=== PATIENT | female | born 1950 | race African-American/Black ===

== ENCOUNTER 2016-06-15 09:55 | Outpatient (RCR) | payer MEDICARE ==
[~2016-06-15 09:55] MED LIST: ALTA10CA3 PO; AMLO10TA PO; ASPI81TA85 PO; ATEN50TA2 PO; GLYB5TA PO; HYDR12.55 PO; LIPITOR PO; LISI-538 PO; TYLE325T5 PO
== END 2016-06-21 ==
LOC: M ST 09:55
PROVIDERS: ATTEND Nurse Practitioner Family
DX: Z51.89 Encounter for other specified aftercare (principal); I67.89 Other cerebrovascular disease; R47.01 Aphasia

== ENCOUNTER 2016-07-04 10:00 | Outpatient (RCR) | payer MEDICARE | END 2016-07-19 | LOC: M ST 10:00 | PROVIDERS: ATTEND Nurse Practitioner Family | DX: Z51.89 Encounter for other specified aftercare (principal); I67.89 Other cerebrovascular disease; R53.1 Weakness; R47.01 Aphasia | CPT/HCPCS: 92507; G9162; G9163 ==

== ENCOUNTER 2016-07-22 10:44 | Outpatient (RCR) | payer MEDICARE, MEDICAID | END 2016-08-19 | LOC: M ST 10:44 | PROVIDERS: ATTEND Nurse Practitioner Family | DX: I67.89 Other cerebrovascular disease (principal); R47.01 Aphasia | CPT/HCPCS: 92507; G9162; G9163; G9164 ==

== ENCOUNTER → 2016-07-22 | Outpatient (CLI) | payer MEDICARE ==
[2016-07-22 13:18] LABS: ANION GAP 10 MEQ/L (8-16); BLOOD UREA NITROGEN 12 MG/DL (7-18); CALCIUM LEVEL 12.3 MG/DL (8.8-10.2); CARBON DIOXIDE LEVEL 28 MEQ/L (21-32); CHLORIDE LEVEL 103 MEQ/L (98-107); CREATININE FOR GFR 0.88 MG/DL (0.55-1.02); GLOMERULAR FILTRATION RATE > 60.0 (>45); GLUCOSE, FASTING 89 MG/DL (80-110); POTASSIUM SERUM 3.3 MEQ/L (3.5-5.1); SODIUM LEVEL 141 MEQ/L (136-145)
== END ==
LOC: M LAB 11:57
PROVIDERS: ATTEND Nurse Practitioner Family
DX: E55.9 Vitamin D deficiency, unspecified (principal); I10 Essential (primary) hypertension

== ENCOUNTER → 2016-07-25 | Outpatient (CLI) | payer MEDICARE ==
[2016-07-25 16:11] LABS: ANION GAP 7 MEQ/L (8-16); BLOOD UREA NITROGEN 13 MG/DL (7-18); CALCIUM LEVEL 12.5 MG/DL (8.8-10.2); CARBON DIOXIDE LEVEL 31 MEQ/L (21-32); CHLORIDE LEVEL 101 MEQ/L (98-107); CREATININE FOR GFR 0.95 MG/DL (0.55-1.02); GLOMERULAR FILTRATION RATE > 60.0 (>45); GLUCOSE, FASTING 110 MG/DL (80-110); POTASSIUM SERUM 3.3 MEQ/L (3.5-5.1); SODIUM LEVEL 139 MEQ/L (136-145)
== END ==
LOC: M LAB 14:51
PROVIDERS: ATTEND Internal Medicine Cardiovascular Disease
DX: I10 Essential (primary) hypertension (principal)

== ENCOUNTER → 2016-09-07 | Outpatient (REF) | payer MEDICARE, MEDICAID ==
[~2016-09-07] MED LIST changes: +ATEN25TA PO; +CHLO25TA PO; +POTA10CA PO; +VITA50003 PO
[2016-09-07 18:42] LABS: ANION GAP 8 MEQ/L (8-16); BLOOD UREA NITROGEN 23 MG/DL (7-18); CALCIUM LEVEL 13.5 MG/DL (8.8-10.2); CARBON DIOXIDE LEVEL 28 MEQ/L (21-32); CHLORIDE LEVEL 102 MEQ/L (98-107); CREATININE FOR GFR 1.21 MG/DL (0.55-1.02); GLOMERULAR FILTRATION RATE 57.4 (>45); GLUCOSE, FASTING 95 MG/DL (80-110); POTASSIUM SERUM 3.5 MEQ/L (3.5-5.1); SODIUM LEVEL 138 MEQ/L (136-145)
[2016-09-08 11:23] LABS: ALBUMIN % 63.3 % (55.8-66.1); GAMMA GLOBULIN % 12.7 % (11.1-18.8)
== END ==
LOC: M LAB REF 16:48
PROVIDERS: ATTEND Nurse Practitioner Family
DX: E83.52 Hypercalcemia (principal)

== ENCOUNTER 2016-09-08 15:59 | Inpatient (IN) | payer MEDICARE, MEDICAID ==
[~2016-09-08] VITALS: Ht 162.6 cm; Wt 74.0 kg
[~2016-09-08 15:59] MED LIST changes: -ATEN25TA PO; -CHLO25TA PO; -POTA10CA PO; -VITA50003 PO
[2016-09-08] MEDS ORDERED: VITA50003 PO (16:20)
[2016-09-08] MEDS ORDERED: ATEN50TA2 PO (16:20)
[2016-09-08] MEDS ORDERED: POTA10CA PO ×2 (16:20→20:32)
[2016-09-08] MEDS ORDERED: CHLO25TA PO ×2 (16:20→20:32)
--- NOTE | 2016-09-08 18:10 | REP ---
CHEST, TWO VIEWS: HISTORY: Hypercalcemia. A diffuse increase in interstitial markings is present in the lungs. The heart is normal in size. The pulmonary vasculature is normal in appearance. The bony structure is intact. IMPRESSION: There is a diffuse increase in interstitial markings in the lungs. It can not be determined if this is acute or chronic as no films are available for comparison. This may represent chronic interstitial fibrosis or an acute process such as interstitial pneumonia or edema. Signed by Agus Washington MD 09/09/2016 08:35 A
[2016-09-08 18:14] LABS: IONIZED CALCIUM 6.5 MG/DL (4.5-5.3)
[2016-09-08 18:22] LABS: BASO % 0.4 % (0.0-1.0); EOS # 0.2 K/mm3 (0.0-0.50); LARGE UNSTAINED CELL # 0.3 K/mm3 (0.0-0.4); LARGE UNSTAINED CELL % 3.3 % (0.0-4.0); LYMPH # 1.1 K/mm3 (1.5-4.5); LYMPH % 13.2 % (24.0-44.0); MEAN CORPUSCULAR HEMOGLOBIN 29.2 pg (27.0-33.0); MEAN CORPUSCULAR HGB CONC 34.1 g/dl (32.0-36.5); MEAN CORPUSCULAR VOLUME 85.5 fl (80.0-96.0); MONO # 0.5 K/mm3 (0.0-0.8); MONO % 5.6 % (0.0-5.0); NEUTROPHILS # 6.4 K/mm3 (1.8-7.7); NEUTROPHILS % 75.6 % (36.0-66.0); PLATELET COUNT, AUTOMATED 222 k/mm3 (150-450); RED CELL DISTRIBUTION WIDTH 14.4 % (11.5-14.5); WHITE BLOOD COUNT 8.5 K/mm3 (4.0-10.0)
[2016-09-08 18:30] LABS: INR 0.94
[2016-09-08 18:38] LABS: CALCIUM LEVEL 13.2 MG/DL (8.8-10.2); MAGNESIUM LEVEL 1.8 MG/DL (1.8-2.4); PHOSPHORUS LEVEL 2.2 MG/DL (2.5-4.9)
[2016-09-08 18:43] LABS: ALBUMIN 3.3 GM/DL (3.2-5.2); ALBUMIN/GLOBULIN RATIO 0.58 (1.00-1.93); ALKALINE PHOSPHATASE 68 U/L (45-117); ALT/SGPT 18 U/L (12-78); AMYLASE 121 U/L (25-115); ANION GAP 7 MEQ/L (8-16); AST/SGOT 12 U/L (15-37); BILIRUBIN,DIRECT 0.2 MG/DL (0.0-0.2); BILIRUBIN,TOTAL 0.8 MG/DL (0.2-1.0); BLOOD UREA NITROGEN 17 MG/DL (7-18); CALCIUM LEVEL 12.7 MG/DL (8.8-10.2); CARBON DIOXIDE LEVEL 28 MEQ/L (21-32); CHLORIDE LEVEL 103 MEQ/L (98-107); CREATININE FOR GFR 1.15 MG/DL (0.55-1.02); GLOMERULAR FILTRATION RATE > 60.0 (>45); GLUCOSE, FASTING 82 MG/DL (80-110); POTASSIUM SERUM 3.6 MEQ/L (3.5-5.1); SODIUM LEVEL 138 MEQ/L (136-145)
[2016-09-08 19:22] LABS: FREE T4 1.28 NG/DL (0.76-1.46)
[2016-09-08] MEDS ORDERED: ONDANSETRON 4MG/2ML VIAL (J2405) IV PRN (19:45)
[2016-09-08] MEDS ORDERED: ACETAMINOPHEN TAB 650MG DOSE (2X325MG) PO PRN (19:45)
--- NOTE | 2016-09-08 20:04 | REP ---
CT study of the chest without contrast: History: Weight loss. Comparison is made with today's chest x-ray showing diffuse interstitial lung disease. Elevated serum calcium. CT findings: There is an extensive pattern of reticulonodular opacities in the central lobular and ally bronchovascular tree in bud type distribution, upper lobe predominant and bilateral. There are also nodular changes in the lower lobes as well, but less numerous. There is some ally bronchovascular opacification with air bronchograms in the lower lobes and to a lesser extent in the upper lobes. There is mediastinal lymphadenopathy and hilar fullness bilaterally. Pretracheal and aorticopulmonary window adenopathy is seen. Subcarinal nodes are prominent. The anterior mediastinum appears spared. There is an oval shaped 2.1 cm nodule in the medial aspect of the right breast soft tissues, which appears smoothly marginated. This may be a fibroadenoma. No bony abnormality is appreciated. Impression: Diffuse reticulonodular interstitial lung disease associated with bilateral hilar and mediastinal adenopathy. The possibilities include granulomatous disease such as sarcoidosis and other granulomatous diseases. Differential is broad and may include lymphangitic spread of malignancy. Pulmonary medicine evaluation is warranted. Also noted is an oval-shaped right medial breast mass, which may be a fibroadenoma. Focused right breast ultrasound is recommended for further evaluation and consideration of ultrasound guided needle biopsy. Signed by Huy Moncada MD 09/09/2016 07:55 A
--- NOTE | 2016-09-08 20:04 | HPEPDOC ---
General Date of Admission 09/08/16 Other Providers PCP: Charissa Delatorre Attending Physician: ASTON VELÁZQUEZ MD Chief Complaint The patient is a 66-year-old female admitted with a reason for visit of Abnormal Lab Results. Source: Patient Exam Limitations: No limitations History of Present Illness 66-year-old female with past medical history of hypertension, diet-controlled diabetes mellitus, and CVA with no residual deficits presented to the ER after she was sent in by her primary care provider for hypercalcemia noticed on lab work and complaints of persistent lethargy and fatigue over the last 3 months. The patient states that during this time she has felt increasingly tired and notes that she has had a 10 pound unintentional weight loss over the last 1 month. She denies any acute complaints of fevers, chills, shortness of breath, chest pain, palpitations, abdominal pain, or any nausea/vomiting/diarrhea. She states that she has not gotten any of her cancer screening done other than a mammogram in 2014 which was normal. In the ER, the patient was noted to have a serum calcium level 13.2 and ionized calcium level of 6.5. In addition the patient also had an acute kidney injury. The patient will be admitted under the service of Dr. Velázquez, for further evaluation and management of hypercalcemia. Home Medications Scheduled Atenolol (Atenolol) 25 Mg Tab 25 MG PO QHS (Reported) Chlorthalidone (Chlorthalidone) 25 Mg Tab 25 MG PO DAILY (Reported) Potassium Chloride (Klor-Con M10) 10 Meq Tabcr 20 MEQ PO DAILY (Reported) Allergies Coded Allergies: Amlodipine (Unverified Allergy, Unknown, CAUSES GOUT, 09/08/16) Iodine (Verified Allergy, Unknown, 10/26/13) Warfarin (Verified Allergy, Unknown, 10/26/13) Past Medical History Medical History As noted in HPI. Surgical History Had an implantable loop recorder placed in 2013. Family History Alcohol had thyroid cancer, aunt had diabetes mellitus Social History * Smoker: Denies Alcohol: Denies Drugs: denies Review of Symptoms Other systems 10 point review of systems negative unless otherwise specified in HPI. Physical Examination General Exam: Positive: Alert, Cooperative, No Acute Distress ENT Exam: Positive: Atraumatic, Mucous membr. moist/pink Neck Exam: Negative: JVD Chest Exam: Positive: Clear to auscultation, Normal air movement Heart Exam: Positive: Normal S1, Normal S2, Rate Normal Telemetry: Positive: Sinus Abdomen Exam: Positive: Soft, Negative: Tenderness Extremity Exam: Negative: Swelling, Tenderness Psych Exam: Positive: Oriented x 3 Vital Signs Vital Signs Date Time Temp Pulse Resp B/P Pulse Ox O2 Delivery O2 Flow Rate FiO2 09/08/16 19:14 18 09/08/16 15:59 96.9 89 97 Room Air Laboratory Data Labs 24H Laboratory Tests 2 09/08/16 17:57: Activated Partial Thromboplast Time 27.1, Aspartate Amino Transf (AST/SGOT) 12L , Alanine Aminotransferase (ALT/SGPT) 18, Alkaline Phosphatase 68, Total Bilirubin 0.8, Direct Bilirubin 0.2, Albumin 3.3, Albumin/Globulin Ratio 0.58L, Amylase Level 121H, Anion Gap 7L, B-Type Natriuretic Peptide 26.0, White Blood Count 8.5, Red Blood Count 4.80, Hemoglobin 14.0, Hematocrit 41.0, Mean Corpuscular Volume 85.5, Mean Corpuscular Hemoglobin 29.2, Mean Corpuscular Hemoglobin Concent 34.1, Red Cell Distribution Width 14.4, Platelet Count 222, Neutrophils (%) (Auto) 75.6H, Lymphocytes (%) (Auto) 13.2L, Monocytes (%) (Auto ) 5.6H, Eosinophils (%) (Auto) 2.0, Basophils (%) (Auto) 0.4, Neutrophils # ( Auto) 6.4, Lymphocytes # (Auto) 1.1L, Monocytes # (Auto) 0.5, Eosinophils # ( Auto) 0.2, Basophils # (Auto) 0.0, Calcium Level 13.2H, Creatine Kinase MB 1.0, Creatine Kinase MB Relative Index 1.81, Free Thyroxine 1.28, Glomerular Filtration Rate > 60.0, Lactic Acid Level 1.1, Large Unclassified Cells # 0.3, Large Unclassified Cells % 3.3, Lipase 124, Magnesium Level 1.8, Parathyroid Hormone (Intact) 17.1, Phosphorus Level 2.2L, Prothromb Time International Ratio 0.94, Prothrombin Time 12.7, Thyroid Stimulating Hormone (TSH) 2.860, Total Creatine Kinase 55, Total Protein 9.0H, Troponin I < 0.02, Whole Blood Ionized Calcium 6.5*H 09/08/16 18:20: Urine Amorphous Sediment SMALLH, Urine Appearance CLEAR, Urine Color YELLOW, Urine pH 6.0, Urine Specific [place] 1.008, Urine Protein NEGATIVE, Urine Glucose (UA) NEGATIVE, Urine Ketones NEGATIVE, Urine Urobilinogen 0.2, Urine Bilirubin NEGATIVE, Urine Leukocyte Esterase 2+H, Urine Bacteria (Auto) 1+H, Urine Blood NEGATIVE, Urine Calcium Carbonate Cryst(Auto) , Urine Calcium Oxalate Cryst (Auto) , Urine Calcium Phosphate Tasha (Auto) , Urine Cellular Casts , Urine Cystine Crystals , Urine Granular Casts (Auto) , Urine Hyaline Casts (Auto) 1, Urine Leucine Crystals , Urine Mucus (Auto) SMALL, Urine Nitrite NEGATIVE, Urine Oval Fat Bodies (Auto) , Urine RBC (Auto) 5H, Urine Renal Epithelial Cells , Urine Sperm (Auto) , Urine Squamous Epithelial Cells 3 , Urine Transitional Epithelial Cells , Urine Trichomonas (Auto) , Urine Triple Phosphate Cryst (Auto) , Urine Tyrosine Crystals , Urine Uric Acid Crystals ( Auto) , Urine WBC (Auto) 10H, Urine Waxy Casts (Auto) , Urine Yeast-Like Cells ( Auto) CBC/BMP Laboratory Tests 09/08/16 17:57 Red Blood Count 4.80, Mean Corpuscular Volume 85.5, Mean Corpuscular Hemoglobin 29.2, Mean Corpuscular Hemoglobin Concent 34.1, Red Cell Distribution Width 14.4 , Neutrophils (%) (Auto) 75.6 H, Lymphocytes (%) (Auto) 13.2 L, Monocytes (%) ( Auto) 5.6 H, Eosinophils (%) (Auto) 2.0, Basophils (%) (Auto) 0.4, Neutrophils # (Auto) 6.4, Lymphocytes # (Auto) 1.1 L, Monocytes # (Auto) 0.5, Eosinophils # (Auto) 0.2, Basophils # (Auto) 0.0 Plan / VTE VTE Prophylaxis Ordered?: Yes Plan Plan Hypercalcemia possibly 2/2 Underlying Malignancy vs Multiple Myeloma We will admit the patient to the PCU EKG with no acute changes IV fluid hydration, and calcitonin ordered SPEP, UPEP, vitamin D levels, PTH, PTHrP, serum viscosity, and skeletal bone survey studies ordered to further ascertain the etiology of the patient's hypercalcemia CT of the Chest and Abd/Pelvis ordered to evaluate for possible underlying malignancy We will continue to monitor the patient on telemetry and follow-up with serum calcium levels in the a.m. Acute Kidney Injury Serum Creatinine 1.2 (Baseline 0.7-0.9) IVF Hydration Avoid Nephrotoxins Follow up with BMP in the AM Hypertension, stable Continue Atenolol Will Hold Chlorthalidone 2/2 MILDRED, and it's possible attributable affect of Hypercalcemia Diet controlled diabetes mellitus We'll place the patient on insulin sliding scale History of CVA, with no residual deficits at this time Not on ASA, Statin? Will defer this to the patient's primary care provider DVT prophylaxis-Lovenox subcutaneous The patient will be admitted under the service of Dr. Velázquez, who will begin to follow the patient on 09/09/16 at 7 AM. VAISHNAVI LOCKWOOD MD Sep 08, 2016 20:04
--- NOTE | 2016-09-08 20:06 | REP ---
CT abdomen and pelvis without IV or oral contrast: History: Weight loss and elevated serum calcium. Findings: The spleen is enlarged measuring 16 cm in anteroposterior span by 14 cm craniocaudal. It is homogeneous. Liver is not enlarged. Gallbladder is unremarkable. No focal hepatic or splenic lesion is seen. No adrenal lesion is observed. The kidneys are morphologically intact. No pancreatic abnormality is observed. There is pancolonic diverticulosis without CT evidence of diverticulitis. Small and large intestinal bowel loops are otherwise unremarkable. The appendix has a normal appearance. There is a calcification adjacent to the appendix. No uterine or ovarian mass is seen. Bone window settings show no bony destructive lesion. Impression: Moderate splenomegaly. Pancolonic diverticulosis without evidence of diverticulitis. No mass or adenopathy seen. Signed by Huy Moncada MD 09/09/2016 07:55 A
[2016-09-08 20:23] LABS: TOTAL PROTEIN 9.2 GM/DL (6.4-8.2)
[2016-09-08] MEDS ORDERED: ATEN25TA PO (20:32)
[2016-09-08] MEDS ORDERED: GLUCAGON FOR INJ 1 MG VIAL (J1610) SC PRN (20:45)
[2016-09-08] MEDS ORDERED: GLUCOSE 4 GM CHEW TABLET PO PRN (20:45)
[2016-09-08] MEDS ORDERED: DEXTROSE 50% 50 ML SYRINGE IV PRN (20:45)
[2016-09-08] MEDS ORDERED: NS 1,000 ML IV SCH (22:30)
[2016-09-08] MEDS: ATENOLOL 25 MG TAB PO SCH (22:42)
[2016-09-08] MEDS: HumaLOG INSULIN (NovoLOG) PER UNIT SC SCH (22:44)
[2016-09-08] MEDS: CALCITONIN SALMON (MIACALCIN) 400INTERNATIONAL UNITS/2ML INJ (J0630) SQ SCH (23:54)
[2016-09-08 23:59] VITALS: BP 192/110
[2016-09-09] VITALS (7 sets, daily range): BP systolic 173–188; BP diastolic 79–92
--- NOTE | 2016-09-09 00:54 | REP ---
Clinical: Hypercalcemia with mediastinal/hilar adenopathy and newly diagnosed lung disease. Technique: 16 total images to include the skull, spine, chest, bilateral humeri and femurs. Findings: With the exception of a few scattered lytic lesions projecting over the frontal bone on PA skull radiograph, no further lytic or blastic abnormalities are identified. Age related degenerative changes to the lumbosacral, thoracic and cervical spine noted without fracture / compression injury or subluxation. Age-related degenerative changes involving the bilateral shoulder, hip and knee joints noted. No acute or obvious healed fracture identified. Frontal view of the thoracic spine demonstrates hilar adenopathy (right greater than left) and diffuse reticulonodular interstitial disease. Impression: 1. Few scattered lytic lesions projecting over the frontal bone are nonspecific and no other lytic/blastic lesions or evidence for metastatic disease appreciated. 2. Degenerative changes to the spine without acute fracture / compression injury or subluxation. 3. Age-related degenerative changes to the shoulder, hip and knee joints. Signed by Solomon Nog MD 09/09/2016 12:46 A
[2016-09-09] MEDS ORDERED: SODIUM CHLORIDE NASAL 0.65% SPRAY BTL (OCEAN) PRN (04:00)
[2016-09-09 05:34] LABS: MEAN CORPUSCULAR HGB CONC 34.2 g/dl (32.0-36.5); MEAN CORPUSCULAR VOLUME 84.8 fl (80.0-96.0); RED CELL DISTRIBUTION WIDTH 14.4 % (11.5-14.5)
[2016-09-09 05:55] LABS: ALBUMIN 2.9 GM/DL (3.2-5.2); ALBUMIN/GLOBULIN RATIO 0.52 (1.00-1.93); ALKALINE PHOSPHATASE 53 U/L (45-117); ALT/SGPT 15 U/L (12-78); ANION GAP 8 MEQ/L (8-16); AST/SGOT 12 U/L (15-37); BILIRUBIN,TOTAL 0.7 MG/DL (0.2-1.0); BLOOD UREA NITROGEN 14 MG/DL (7-18); CALCIUM LEVEL 11.6 MG/DL (8.8-10.2); CARBON DIOXIDE LEVEL 28 MEQ/L (21-32); CHLORIDE LEVEL 104 MEQ/L (98-107); CREATININE FOR GFR 0.94 MG/DL (0.55-1.02); GLOMERULAR FILTRATION RATE > 60.0 (>45); GLUCOSE, FASTING 125 MG/DL (80-110); SODIUM LEVEL 140 MEQ/L (136-145); TOTAL PROTEIN 8.5 GM/DL (6.4-8.2)
[2016-09-09] MEDS: HumaLOG INSULIN (NovoLOG) PER UNIT SC SCH ×4 (07:30→20:57)
[2016-09-09] MEDS: cloNIDine 0.1 MG TAB PO SCH ×2 (09:00→20:57)
[2016-09-09] MEDS ORDERED: POTASSIUM CHLORIDE 10 MEQ SR TABLET PO ONE (10:30)
[2016-09-09] MEDS: ENOXAPARIN 40 MG/0.4 ML SYRINGE (J1650) SC SCH (10:37)
[2016-09-09] MEDS: CALCITONIN SALMON (MIACALCIN) 400INTERNATIONAL UNITS/2ML INJ (J0630) SQ SCH ×2 (10:37→20:57)
[2016-09-09] MEDS ORDERED: NS 1,000 ML IV SCH (10:45)
[2016-09-09] MEDS ORDERED: amLODIPine 5 MG TAB PO ONE (10:45)
[2016-09-09] MEDS ORDERED: FUROSEMIDE 20 MG/2 ML VIAL (J1940) IV ONE (10:45)
--- NOTE | 2016-09-09 11:06 | IPNPDOC ---
Subjective Date Seen The patient was seen on 09/09/16. Subjective Chief Complaint/HPI The patient is a 66-year-old female admitted with a reason for visit of Hypercalcemia. Events since last encounter patient does not have any acute complaints today , was sent in yesterday by pmd for abnormal lab work , she did complain of some unintentional weight loss over the past 3 months. Objective Physical Examination General Exam: Positive: Alert, Cooperative, No Acute Distress ENT Exam: Positive: Atraumatic, Mucous membr. moist/pink Neck Exam: Negative: JVD Chest Exam: Positive: Clear to auscultation, Normal air movement Heart Exam: Positive: Normal S1, Normal S2, Rate Normal Telemetry: Positive: Sinus Abdomen Exam: Positive: Soft, Negative: Tenderness Extremity Exam: Negative: Swelling, Tenderness Psych Exam: Positive: Oriented x 3 Assessment /Plan Problems (1) Hypercalcemia Status: Acute Problem Text: will continue IVF , give lasix and calcitonin. will hold hydrochlorthalidone. PTH low. 25 oh vit D low, others pending. (2) Hilar lymphadenopathy Status: Acute Problem Text: hilar and mediastinal lymphadenopathy with diffuse reticulonodular infiltrates Dr Jiménez to see. (3) Lytic lesion of bone on x-ray Status: Acute Problem Text: malignancy work up and MM work up in progress. (4) Breast mass, right Status: Chronic Problem Text: will get breast ultrasound. (5) Hypertension Status: Chronic Problem Text: will start clonidine , on discharge will change to ACEI (6) Diabetes mellitus Status: Chronic Problem Text: diet controlled. (7) MILDRED (acute kidney injury) Status: Resolved (8) MOLLY on CPAP Status: Chronic (9) Hyperlipidemia Status: Chronic (10) History of CVA (cerebrovascular accident) without residual deficits Status: Chronic (11) Weight loss Status: Acute Problem Text: with anorexia over the past 3 months. malignancy work up has been started. Plan/VTE VTE Prophylaxis Ordered?: Yes VS, I&O, 24H, [place] Vital Signs/I&O Vital Signs Date Time Temp Pulse Resp B/P Pulse Ox O2 Delivery O2 Flow Rate FiO2 09/09/16 07:57 97.8 85 20 177/79 97 Room Air I&O- Last 24 Hours up to 6 AM 09/09/16 06:00 Intake Total 950 ml Output Total 450 ml Balance 500 ml Laboratory Data 24H LABS Laboratory Tests 2 09/08/16 17:50: 25-Hydroxy Vitamin D Total 22.7L, Rheumatoid Factor < 10.0, Total Protein 9.2H 09/08/16 17:57: Total Protein 9.0H, Activated Partial Thromboplast Time 27.1, Aspartate Amino Transf (AST/SGOT) 12L, Alanine Aminotransferase (ALT/SGPT) 18, Alkaline Phosphatase 68, Total Bilirubin 0.8, Direct Bilirubin 0.2, Albumin 3.3, Albumin/ Globulin Ratio 0.58L, Amylase Level 121H, Anion Gap 7L, B-Type Natriuretic Peptide 26.0, White Blood Count 8.5, Red Blood Count 4.80, Hemoglobin 14.0, Hematocrit 41.0, Mean Corpuscular Volume 85.5, Mean Corpuscular Hemoglobin 29.2 , Mean Corpuscular Hemoglobin Concent 34.1, Red Cell Distribution Width 14.4, Platelet Count 222, Neutrophils (%) (Auto) 75.6H, Lymphocytes (%) (Auto) 13.2L, Monocytes (%) (Auto) 5.6H, Eosinophils (%) (Auto) 2.0, Basophils (%) (Auto) 0.4 , Neutrophils # (Auto) 6.4, Lymphocytes # (Auto) 1.1L, Monocytes # (Auto) 0.5, Eosinophils # (Auto) 0.2, Basophils # (Auto) 0.0, Calcium Level 13.2H, Creatine Kinase MB 1.0, Creatine Kinase MB Relative Index 1.81, Free Thyroxine 1.28, Glomerular Filtration Rate > 60.0, Lactic Acid Level 1.1, Large Unclassified Cells # 0.3, Large Unclassified Cells % 3.3, Lipase 124, Magnesium Level 1.8, Parathyroid Hormone (Intact) 17.1, Phosphorus Level 2.2L, Prothromb Time International Ratio 0.94, Prothrombin Time 12.7, Thyroid Stimulating Hormone ( TSH) 2.860, Total Creatine Kinase 55, Troponin I < 0.02, Whole Blood Ionized Calcium 6.5*H 09/08/16 18:20: Urine Amorphous Sediment SMALLH, Urine Appearance CLEAR, Urine Color YELLOW, Urine pH 6.0, Urine Specific [place] 1.008, Urine Protein NEGATIVE, Urine Glucose (UA) NEGATIVE, Urine Ketones NEGATIVE, Urine Urobilinogen 0.2, Urine Bilirubin NEGATIVE, Urine Leukocyte Esterase 2+H, Urine Bacteria (Auto) 1+H, Urine Blood NEGATIVE, Urine Calcium Carbonate Cryst(Auto) , Urine Calcium Oxalate Cryst (Auto) , Urine Calcium Phosphate Tasha (Auto) , Urine Cellular Casts , Urine Cystine Crystals , Urine Granular Casts (Auto) , Urine Hyaline Casts (Auto) 1, Urine Leucine Crystals , Urine Mucus (Auto) SMALL, Urine Nitrite NEGATIVE, Urine Oval Fat Bodies (Auto) , Urine Total Protein 26.5H, Urine RBC (Auto) 5H, Urine Renal Epithelial Cells , Urine Sperm (Auto) , Urine Squamous Epithelial Cells 3, Urine Transitional Epithelial Cells , Urine Trichomonas (Auto) , Urine Triple Phosphate Cryst (Auto) , Urine Tyrosine Crystals , Urine Uric Acid Crystals (Auto) , Urine WBC (Auto) 10H, Urine Waxy Casts (Auto) , Urine Yeast-Like Cells (Auto) 09/08/16 22:44: Bedside Glucose (Misc Panel) 107 09/09/16 05:15: Blood Urea Nitrogen 14, Creatinine 0.94, Sodium Level 140, Potassium Level 3.0L , Chloride Level 104, Carbon Dioxide Level 28, Calcium Level 11.6H, Aspartate Amino Transf (AST/SGOT) 12L, Alanine Aminotransferase (ALT/SGPT) 15, Alkaline Phosphatase 53, Total Bilirubin 0.7, Total Protein 8.5H, Albumin 2.9L, Albumin/ Globulin Ratio 0.52L, Anion Gap 8, Glomerular Filtration Rate > 60.0 09/09/16 05:16: CBC/BMP Laboratory Tests 09/08/16 17:57 Red Blood Count 4.80, Mean Corpuscular Volume 85.5, Mean Corpuscular Hemoglobin 29.2, Mean Corpuscular Hemoglobin Concent 34.1, Red Cell Distribution Width 14.4 , Neutrophils (%) (Auto) 75.6 H, Lymphocytes (%) (Auto) 13.2 L, Monocytes (%) ( Auto) 5.6 H, Eosinophils (%) (Auto) 2.0, Basophils (%) (Auto) 0.4, Neutrophils # (Auto) 6.4, Lymphocytes # (Auto) 1.1 L, Monocytes # (Auto) 0.5, Eosinophils # (Auto) 0.2, Basophils # (Auto) 0.0 09/09/16 05:15 Red Blood Count 4.33, Mean Corpuscular Volume 84.8, Mean Corpuscular Hemoglobin 29.0, Mean Corpuscular Hemoglobin Concent 34.2, Red Cell Distribution Width 14.4 , Calcium Level 11.6 H, Aspartate Amino Transf (AST/SGOT) 12 L, Alanine Aminotransferase (ALT/SGPT) 15, Alkaline Phosphatase 53, Total Bilirubin 0.7, Total Protein 8.5 H, Albumin 2.9 L ASTON VALENCIA MD Sep 09, 2016 11:06
[2016-09-09] MEDS: KCL 40MEQ in NS 1000ML 1,000 ML IV SCH ×2 (11:20→20:56)
--- NOTE | 2016-09-09 16:10 | REP ---
Focused right breast sonography: History: Right breast mass seen on CT study of the chest. Findings: The right breast is scanned medially from 12-o'clock to 6-o'clock. The patient reports that the mass found here corresponds to a palpable lump that she claims to have for 20 years. Findings: At 3-o'clock there is an oval-shaped well-circumscribed hypoechoic lesion with enhanced through transmission consistent with a fibroadenoma. Its long axis is roughly parallel to the skin. Its dimensions are 2.0 x 2.0 x 1.0 cm. It is compatible with a fibroadenoma. Impression: Hypoechoic oval shaped mass in the medial aspect of the right breast compatible with fibroadenoma. Stable for many years by history. BIRADS category II benign sonography. Signed by Huy Moncada MD 09/09/2016 05:02 P
--- NOTE | 2016-09-09 17:47 | CR ---
DATE OF CONSULTATION: 09/09/2016 PRIMARY CARE PROVIDER: Charissa Delatorre NP. HISTORY OF PRESENT ILLNESS: The patient is a 66-year-old female presenting to the hospital for hypercalcemia. The patient initially reports having hypercalcemia back on 07/22/2016. At this time, the patient's calcium was 12.3. The patient also reports having laboratory work done with Dr. Han on 07/25/2016, which also showed an elevated calcium at 12.5. Since then, the patient then had a followup physical exam with her primary care physician on 09/07/2016. Had lab work done at this time, and was also found to have an elevated calcium at 13.5. The patient reports that then was instructed to go to the hospital, and the patient was admitted at that time. The patient reports having episodes of bronchitis-like illness for the past 15 years on-and-off. Reports recently feeling fatigued and tired. The patient admits to having constipation on occasion and uses Colace for this. She reports a decreased desire to eat and a decreased appetite overall. She reports decreasing liquid consumption and feels dehydrated and dry. During exam, the patient complains of having dry, chapped lips. The patient denies any difficulty swallowing or headaches. The patient admits to a cough that is on-and-off and sometimes brings up phlegm and is productive. The patient admits to having sinus problems and a deviated septum. On admission to the hospital, the patient had a chest x-ray. The x-ray showed reticular nodular pattern interstitial markings in bilateral lungs. There was no comparison x-ray to compare to. Cannot be determined if it is acute or chronic. A CT scan of the chest was performed without contrast. This showed reticular nodule interstitial disease, as well as mediastinal lymphadenopathy and bronchiectasis. At this point, pulmonology was consulted for this patient. PAST MEDICAL HISTORY: The patient has a history of hypertension, obstructive sleep apnea, diabetes, and history of cerebrovascular accident. SURGICAL HISTORY: The patient had deviated septum repair. MEDICATIONS: The patient takes atenolol 25 mg orally daily, chlorthalidone 25 mg oral daily, and potassium chloride 20 mEq by mouth daily. ALLERGIES: The patient has reported allergies to IODINE and WARFARIN, as well as AMLODIPINE. SOCIAL HISTORY: The patient lives in a senior building at home alone. The patient denies every smoking, drinking or illicit substances. 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 She is unsure if she has had asbestos exposure. Denies having birds as pets. FAMILY HISTORY: The patient denies any family history of sarcoid or lung disease. The patient reports having an uncle with thyroid cancer. Mother and father both are . Father of old age. REVIEW OF SYSTEMS: GENERAL: The patient reports having a recent weight loss. The patient reports at one time trying to lose weight, but reports losing more weight than this. Denies any fever or chills, or night sweats. HEENT: The patient denies any eye pain or changes in vision. The patient denies any trouble swallowing, difficulty swallowing. The patient admits to having a deviated nasal septum. Reports possible surgery on this in the future. NECK: The patient denies any pain in her neck. No lumps or bumps. CARDIAC: The patient denies any chest pain or palpitations. The patient denies orthopnea. RESPIRATORY: The patient admits to having an occasional cough with some sputum. Denies coughing up blood. Denies shortness of breath. GASTROINTESTINAL (GI): The patient admits to occasional constipation and takes Colace for this. The patient denies abdominal pain, nausea or vomiting. Admits to decreased appetite. MUSCULOSKELETAL: The patient denies muscular weakness, stiffness or pain. NEUROLOGIC: The patient denies any tremors, weakness or dizziness. The patient denies numbness. VASCULAR: The patient denies calf pain with walking, or leg cramping. URINARY: The patient denies any burning, pain or frequency with urination. SKIN: The patient does admit to having hives. This was resolved with some cream. The patient does admit to having some remaining in her arms. ENDOCRINE: The patient denies hot or cold intolerance. The patient denies frequent thirst. PSYCHIATRIC: The patient denies depression, or nervousness or anxiety. PHYSICAL EXAMINATION: Vitals: T97.1, P75, RR 18 BP 174/80, 95% on RA APPEARANCE: The patient appears alert, oriented, cooperative and comfortable. No respiratory distress. HEENT: Extraocular muscles are intact. Pupils are equal and reactive to light and accommodation. No lesions or masses in oropharynx. Lymph: No cervical or supraclavicular adenopathy CARDIAC: Normal S1, S2. No clicks, rubs, gallops or murmurs. PMI is non displaced. No elevated JVP. RESPIRATORY: Clear to auscultation bilaterally. No wheezing or crackles. Negative for egophony. No accessory muscle use. No dullness to percussion. ABDOMEN: Bowel sounds clear to auscultation. No pain or tenderness to palpation. No masses or organomegaly palpated. EXTREMITIES: Radial pulses palpated bilaterally 2/4. No cyanosis or clubbing. Skin: Two small nodules palpated in each upper extremity in the forearm. They are both less than 0.5 cm, and freely mobile nodular lesions. They are nontender to palpation. No jaundice. Musculoskeletal: No muscle wasting, no unilateral weakness. LABORATORY DATA: On admission, the patient's calcium was 12.7. The patient's total protein was 9.0, albumin 3.3. The patient's TSH was 2.86. Sodium 138, potassium 3.6, chloride 103, CO2 28, BUN 17, creatinine 1.15, fasting glucose 82. Rheumatoid factor was less than 10. UA on admission showed yellow clear urine with a urine pH of 6.0. There was 2+ leukocyte esterase and 10 white blood cell count and 5 red blood cell count. There was 1+ urine bacteria, and everything else in the urine was negative. 25-hydroxylate vitamin D 22.7. An SPEP from the previous day showed a normal pattern. Another SPEP was taken on admission and is still pending. UPEP on admission was also still pending. Immunotype is pending and TB test is pending. RADIOLOGIC IMAGING: Chest x-ray performed on 09/09 showed reticular nodule pattern of interstitium. CT of chest also showed a reticular nodular interstitial disease, as well as mediastinal lymphadenopathy and bronchiectasis. Abdominal CT was performed and showed enlarged spleen that was homogenous with no lesions. Liver showed no lesions. There was a breast lesion the size of 2.1 cm in the right breast. Bone osseous survey showed multiple lytic lesions in the skull. ASSESSMENT AND PLAN: 1. Abnormal CT of the chest. The patient's history and exam are most likely consistent with sarcoidosis. The patient's calcium was high at 12.7 on admission. The patient's CT scan is characteristic of sarcoidosis. The patient has a multi-year history of having episodes of difficulty breathing and not feeling well. The patient also has hypercalcemia. The patient will need continued workup for other causes of hypercalcemia. These labs are currently being pending and will be helpful for diagnosis. We will not treat the patient for sarcoidosis at this time until full workup is completed. The patient will need completed workup for outpatient lymph node biopsy and lung bronchoscopy. Some of this differential is discussed with patient, including multiple myeloma which is being tested through labs. The patient also has lab work to help support sarcoidosis that is pending at this time. At this time, medications may also need to be looked at for possible cause of hypercalcemia. The patient formally took vitamin D which had been stopped at this time and for the past few months. Other medications that cause hypercalcemia need to be considered. Hyperparathyroidism also could be considered; however, on lab work, parathyroid hormone (PTH) was performed and was 17.1 which is a normal value. PTH-related protein lab is currently pending. While in the hospital, the patient will need to be treated for hypercalcemia. Medications to be considered include bisphosphonates and other medications to help lower the calcium, as well as hydration. Plan is to biopsy the patient upon discharge from hospital through outpatient procedure. My preceptor for this patient encounter was Dr. Karthik Mora. The preceptor was physically present in the room during the encounter and was fully available as needed. All aspects of the patient interview, examination, medical decision making process, and medical care plan development were reviewed and approved by the preceptor. The preceptor is aware and concurs with the plan as stated in the body of this note and will attest to such by his/her co-signature. I, Karthik Mora, conducted an independent history and physical. I believe the abnormal chest CT is likely from sarcoid which could easily be the cause of her hypercalcemia. The findings on chest CT suggest that this has been a chronic condition. Biopsy will be performed as an outpt. I discussed the risks and benefits of the procedure with the patient and she agrees to proceed. It is quite curious as to why she is hypercalcemic now after having this for so long and therefore other causes of hypercalcemia or other potential contributors should be looked at. SOLO
--- NOTE | 2016-09-09 20:19 | ECGEPIP ---
Stationary ECG Study [facility] - ED Test Date: 2016-09-08 Pat Name: MARINO NELSON Department: Room: - Gender: F Information Engineer: lawanda : 1950 Requested By: Jon Woods Order Number: [id number] Reading MD: Lesly Delgado Measurements Intervals [place] Rate: 84 P: 57 HI: 210 QRS: -34 QRSD: 100 T: 30 QT: 358 QTc: 424 Interpretive Statements SINUS RHYTHM WITH FIRST DEGREE AV BLOCK MARKED LEFT AXIS DEVIATION NSTTW ABNORMALITY SIMILAR 10/26/13 Electronically Signed On 09-09-2016 20:19:04 EDT by Lesly Delgado
[2016-09-09] MEDS: ATENOLOL 25 MG TAB PO SCH (20:57)
[2016-09-09] MEDS ORDERED: amLODIPine 5 MG TAB PO SCH (21:00)
[2016-09-10 06:00] VITALS: BP 166/77
[2016-09-10 06:16] LABS: MEAN CORPUSCULAR HEMOGLOBIN 28.3 pg (27.0-33.0); MEAN CORPUSCULAR HGB CONC 32.8 g/dl (32.0-36.5); MEAN CORPUSCULAR VOLUME 86.4 fl (80.0-96.0); RED CELL DISTRIBUTION WIDTH 14.4 % (11.5-14.5); WHITE BLOOD COUNT 10.8 K/mm3 (4.0-10.0)
[2016-09-10 06:47] LABS: ALBUMIN/GLOBULIN RATIO 0.58 (1.00-1.93); ALKALINE PHOSPHATASE 58 U/L (45-117); ALT/SGPT 14 U/L (12-78); ANION GAP 7 MEQ/L (8-16); AST/SGOT 10 U/L (15-37); BILIRUBIN,TOTAL 0.7 MG/DL (0.2-1.0); BLOOD UREA NITROGEN 10 MG/DL (7-18); CALCIUM LEVEL 10.2 MG/DL (8.8-10.2); CARBON DIOXIDE LEVEL 25 MEQ/L (21-32); CHLORIDE LEVEL 109 MEQ/L (98-107); CREATININE FOR GFR 0.91 MG/DL (0.55-1.02); GLOMERULAR FILTRATION RATE > 60.0 (>45); GLUCOSE, FASTING 122 MG/DL (80-110); POTASSIUM SERUM 4.1 MEQ/L (3.5-5.1); SODIUM LEVEL 141 MEQ/L (136-145); TOTAL PROTEIN 8.2 GM/DL (6.4-8.2)
[2016-09-10] MEDS: HumaLOG INSULIN (NovoLOG) PER UNIT SC SCH ×4 (07:30→21:21)
--- NOTE | 2016-09-10 08:37 | IPNPDOC ---
Subjective Date Seen The patient was seen on 09/10/16. Subjective Chief Complaint/HPI The patient is a 66-year-old female admitted with a reason for visit of Hypercalcemia. Events since last encounter No complaints this am. Objective Physical Examination General Exam: Positive: Alert, Cooperative, No Acute Distress ENT Exam: Positive: Atraumatic, Mucous membr. moist/pink Neck Exam: Negative: JVD Chest Exam: Positive: Clear to auscultation, Normal air movement Heart Exam: Positive: Normal S1, Normal S2, Rate Normal Telemetry: Positive: Sinus Abdomen Exam: Positive: Soft, Negative: Tenderness Extremity Exam: Negative: Swelling, Tenderness Psych Exam: Positive: Oriented x 3 Assessment /Plan Problems (1) Hypercalcemia Status: Acute Problem Text: resolved will stop calcitonin.will continue low dose lasix will hold hydrochlorthalidone. PTH low. 25 oh vit D low, others pending. (2) Hilar lymphadenopathy Status: Acute Problem Text: hilar and mediastinal lymphadenopathy with diffuse reticulonodular infiltrates To follow with Dr Jiménez as outpatient for bronchoscopy and biopsy. (3) Lytic lesion of bone on x-ray Status: Acute Problem Text: malignancy work up and MM work up in progress. (4) Breast mass, right Status: Chronic Problem Text: mammogram and breast US shows its fibroadenoma stable from many years. (5) Hypertension Status: Chronic Problem Text: will start clonidine , lisinopril (6) Diabetes mellitus Status: Chronic Problem Text: diet controlled. (7) MILDRED (acute kidney injury) Status: Resolved (8) MOLLY on CPAP Status: Chronic (9) Hyperlipidemia Status: Chronic (10) History of CVA (cerebrovascular accident) without residual deficits Status: Chronic (11) Weight loss Status: Acute Problem Text: with anorexia over the past 3 months. malignancy work up has been started. Plan/VTE VTE Prophylaxis Ordered?: Yes VS, I&O, 24H, Fishbone Vital Signs/I&O Vital Signs Date Time Temp Pulse Resp B/P Pulse Ox O2 Delivery O2 Flow Rate FiO2 09/10/16 06:00 98.5 71 20 166/77 95 Room Air I&O- Last 24 Hours up to 6 AM 09/10/16 06:00 Intake Total 2040 ml Output Total 2500 ml Balance -460 ml Laboratory Data 24H LABS Laboratory Tests 2 09/09/16 12:12: Bedside Glucose (Misc Panel) 122H 09/09/16 17:05: Bedside Glucose (Misc Panel) 120H 09/09/16 20:39: Bedside Glucose (Misc Panel) 107 09/10/16 05:56: Blood Urea Nitrogen 10, Creatinine 0.91, Sodium Level 141, Potassium Level 4.1# , Chloride Level 109H, Carbon Dioxide Level 25, Calcium Level 10.2, Aspartate Amino Transf (AST/SGOT) 10L, Alanine Aminotransferase (ALT/SGPT) 14, Alkaline Phosphatase 58, Total Bilirubin 0.7, Total Protein 8.2, Albumin 3.0L, Albumin/ Globulin Ratio 0.58L, Anion Gap 7L, Glomerular Filtration Rate > 60.0, Whole Blood Ionized Calcium 5.8H CBC/BMP Laboratory Tests 09/10/16 05:56 Calcium Level 10.2, Aspartate Amino Transf (AST/SGOT) 10 L, Alanine Aminotransferase (ALT/SGPT) 14, Alkaline Phosphatase 58, Total Bilirubin 0.7, Total Protein 8.2, Albumin 3.0 L, Red Blood Count 4.40, Mean Corpuscular Volume 86.4, Mean Corpuscular Hemoglobin 28.3, Mean Corpuscular Hemoglobin Concent 32.8 , Red Cell Distribution Width 14.4 ASTON VALENCIA MD Sep 10, 2016 08:37
[2016-09-10] MEDS ORDERED: LISINOPRIL 10 MG TAB PO SCH (09:00)
[2016-09-10] MEDS: cloNIDine 0.1 MG TAB PO SCH ×3 (09:08→21:51)
[2016-09-10] MEDS: FUROSEMIDE 20 MG TAB PO SCH (09:09)
[2016-09-10] MEDS: ENOXAPARIN 40 MG/0.4 ML SYRINGE (J1650) SC SCH (09:10)
[2016-09-10] MEDS: LOSARTAN 50 MG TAB PO SCH (09:16)
[2016-09-10 14:00] VITALS: BP 118/68
[2016-09-10] MEDS: ATENOLOL 25 MG TAB PO SCH (21:53)
[2016-09-10 22:00] VITALS: BP 130/72
[2016-09-11 06:00] VITALS: BP 148/70
[2016-09-11 06:29] LABS: MEAN CORPUSCULAR HEMOGLOBIN 29.5 pg (27.0-33.0); MEAN CORPUSCULAR HGB CONC 34.5 g/dl (32.0-36.5); MEAN CORPUSCULAR VOLUME 85.5 fl (80.0-96.0); RED CELL DISTRIBUTION WIDTH 14.4 % (11.5-14.5); WHITE BLOOD COUNT 9.3 K/mm3 (4.0-10.0)
[2016-09-11 07:08] LABS: ALBUMIN 2.8 GM/DL (3.2-5.2); ALBUMIN/GLOBULIN RATIO 0.55 (1.00-1.93); ALKALINE PHOSPHATASE 52 U/L (45-117); ALT/SGPT 13 U/L (12-78); ANION GAP 7 MEQ/L (8-16); AST/SGOT 9 U/L (15-37); BILIRUBIN,TOTAL 0.8 MG/DL (0.2-1.0); BLOOD UREA NITROGEN 10 MG/DL (7-18); CALCIUM LEVEL 10.9 MG/DL (8.8-10.2); CARBON DIOXIDE LEVEL 26 MEQ/L (21-32); CHLORIDE LEVEL 105 MEQ/L (98-107); CREATININE FOR GFR 0.83 MG/DL (0.55-1.02); GLOMERULAR FILTRATION RATE > 60.0 (>45); GLUCOSE, FASTING 102 MG/DL (80-110); POTASSIUM SERUM 3.2 MEQ/L (3.5-5.1); SODIUM LEVEL 138 MEQ/L (136-145); TOTAL PROTEIN 7.9 GM/DL (6.4-8.2)
[2016-09-11] MEDS: HumaLOG INSULIN (NovoLOG) PER UNIT SC SCH ×4 (07:30→20:53)
[2016-09-11] MEDS: cloNIDine 0.1 MG TAB PO SCH ×3 (09:00→20:53)
--- NOTE | 2016-09-11 09:15 | IPNPDOC ---
Subjective Date Seen The patient was seen on 09/11/16. Subjective Chief Complaint/HPI The patient is a 66-year-old female admitted with a reason for visit of Hypercalcemia. Events since last encounter no complaints Objective Physical Examination General Exam: Positive: Alert, Cooperative, No Acute Distress ENT Exam: Positive: Atraumatic, Mucous membr. moist/pink Neck Exam: Negative: JVD Chest Exam: Positive: Clear to auscultation, Normal air movement Heart Exam: Positive: Normal S1, Normal S2, Rate Normal Telemetry: Positive: Sinus Abdomen Exam: Positive: Soft, Negative: Tenderness Extremity Exam: Negative: Swelling, Tenderness Psych Exam: Positive: Oriented x 3 Assessment /Plan Problems (1) Hypercalcemia Status: Acute Problem Text: Calcium again rising. Will give pamidronate 1 dose. will continue low dose lasix PTH low. 25 oh vit D low, others pending. (2) Hilar lymphadenopathy Status: Acute Problem Text: hilar and mediastinal lymphadenopathy with diffuse reticulonodular infiltrates To follow with Dr Jiménez as outpatient for bronchoscopy and biopsy. (3) Lytic lesion of bone on x-ray Status: Acute Problem Text: malignancy work up and MM work up in progress. (4) Breast mass, right Status: Chronic Problem Text: mammogram and breast US shows its fibroadenoma stable from many years. (5) Hypertension Status: Chronic Response to Treatment: Improving Problem Text: better controlled with losartan and clonidine and atenolol (6) Diabetes mellitus Status: Chronic Problem Text: diet controlled. (7) MILDRED (acute kidney injury) Status: Resolved (8) MOLLY on CPAP Status: Chronic (9) Hyperlipidemia Status: Chronic (10) History of CVA (cerebrovascular accident) without residual deficits Status: Chronic (11) Weight loss Status: Acute Problem Text: with anorexia over the past 3 months. malignancy work up has been started. Plan/VTE VTE Prophylaxis Ordered?: Yes VS, I&O, 24H, Fishbone Vital Signs/I&O Vital Signs Date Time Temp Pulse Resp B/P Pulse Ox O2 Delivery O2 Flow Rate FiO2 09/11/16 06:00 98.2 65 18 148/70 93 Room Air I&O- Last 24 Hours up to 6 AM 09/11/16 06:00 Intake Total 1260 ml Output Total 1250 ml Balance 10 ml Laboratory Data 24H LABS Laboratory Tests 2 09/10/16 11:50: Bedside Glucose (Misc Panel) 116H 09/10/16 16:54: Bedside Glucose (Misc Panel) 110 09/10/16 20:39: Bedside Glucose (Misc Panel) 111 09/11/16 06:07: Blood Urea Nitrogen 10, Creatinine 0.83, Sodium Level 138, Potassium Level 3.2#L , Chloride Level 105, Carbon Dioxide Level 26, Calcium Level 10.9H, Aspartate Amino Transf (AST/SGOT) 9L, Alanine Aminotransferase (ALT/SGPT) 13, Alkaline Phosphatase 52, Total Bilirubin 0.8, Total Protein 7.9, Albumin 2.8L, Albumin/ Globulin Ratio 0.55L, Anion Gap 7L, Glomerular Filtration Rate > 60.0 CBC/BMP Laboratory Tests 09/11/16 06:07 Calcium Level 10.9 H, Aspartate Amino Transf (AST/SGOT) 9 L, Alanine Aminotransferase (ALT/SGPT) 13, Alkaline Phosphatase 52, Total Bilirubin 0.8, Total Protein 7.9, Albumin 2.8 L, Red Blood Count 4.35, Mean Corpuscular Volume 85.5, Mean Corpuscular Hemoglobin 29.5, Mean Corpuscular Hemoglobin Concent 34.5 , Red Cell Distribution Width 14.4 ASTON VALENCIA MD Sep 11, 2016 09:15
[2016-09-11] MEDS: LOSARTAN 50 MG TAB PO SCH (09:31)
[2016-09-11] MEDS: FUROSEMIDE 20 MG TAB PO SCH (09:31)
[2016-09-11] MEDS: ENOXAPARIN 40 MG/0.4 ML SYRINGE (J1650) SC SCH (09:32)
[2016-09-11] MEDS ORDERED: PAMIDRONATE DISODIUM FOR INJ 60 MG in D5W 1,000 ML IV ONE (12:00)
[2016-09-11] MEDS: predniSONE 20 MG TAB PO SCH (12:48)
[2016-09-11 14:00] VITALS: BP 165/69
[2016-09-11] MEDS: ATENOLOL 25 MG TAB PO SCH (20:52)
[2016-09-11 22:00] VITALS: BP 161/76
[2016-09-12 06:00] VITALS: BP 155/73
[2016-09-12 06:57] LABS: MEAN CORPUSCULAR HEMOGLOBIN 28.8 pg (27.0-33.0); MEAN CORPUSCULAR HGB CONC 33.6 g/dl (32.0-36.5); MEAN CORPUSCULAR VOLUME 85.5 fl (80.0-96.0); RED CELL DISTRIBUTION WIDTH 14.4 % (11.5-14.5)
[2016-09-12 07:09] LABS: ALBUMIN 2.8 GM/DL (3.2-5.2); ALBUMIN/GLOBULIN RATIO 0.54 (1.00-1.93); ALKALINE PHOSPHATASE 53 U/L (45-117); ALT/SGPT 19 U/L (12-78); ANION GAP 8 MEQ/L (8-16); AST/SGOT 15 U/L (15-37); BILIRUBIN,TOTAL 0.7 MG/DL (0.2-1.0); BLOOD UREA NITROGEN 11 MG/DL (7-18); CALCIUM LEVEL 10.9 MG/DL (8.8-10.2); CARBON DIOXIDE LEVEL 26 MEQ/L (21-32); CHLORIDE LEVEL 103 MEQ/L (98-107); CREATININE FOR GFR 0.83 MG/DL (0.55-1.02); GLOMERULAR FILTRATION RATE > 60.0 (>45); GLUCOSE, FASTING 106 MG/DL (80-110); SODIUM LEVEL 137 MEQ/L (136-145)
[2016-09-12 07:16] LABS: POTASSIUM SERUM 2.8 MEQ/L (3.5-5.1)
[2016-09-12] MEDS: HumaLOG INSULIN (NovoLOG) PER UNIT SC SCH ×2 (07:30→12:00)
[2016-09-12] MEDS ORDERED: LOSARTAN 50 MG TAB PO SCH (09:00)
[2016-09-12] MEDS: FUROSEMIDE 20 MG TAB PO SCH (09:00)
[2016-09-12] MEDS: ENOXAPARIN 40 MG/0.4 ML SYRINGE (J1650) SC SCH ×2 (09:00→09:12)
[2016-09-12] MEDS: predniSONE 20 MG TAB PO SCH (09:14)
[2016-09-12] MEDS: cloNIDine 0.1 MG TAB PO SCH ×2 (09:14→15:49)
[2016-09-12] MEDS ORDERED: POTASSIUM CHLORIDE 10 MEQ SR TABLET PO ONE ×2 (10:00→12:00)
[2016-09-12] MEDS ORDERED: FURO20TA2 PO (11:09)
[2016-09-12] MEDS ORDERED: CLONI1TA PO (11:09)
[2016-09-12] MEDS ORDERED: ATEN25TA PO (11:09)
[2016-09-12] MEDS ORDERED: DELT1TAB PO (11:09)
[2016-09-12] MEDS ORDERED: COZA50TA PO (11:09)
[2016-09-12 12:47] LABS: ALBUMIN 3.84 GM/DL (3.29-5.55); ALBUMIN % 41.7 % (55.8-66.1); GAMMA GLOBULIN % 29.8 % (11.1-18.8)
[2016-09-12 14:00] VITALS: BP 127/62
[2016-09-12 14:33] LABS: ANION GAP 9 MEQ/L (8-16); BLOOD UREA NITROGEN 16 MG/DL (7-18); CALCIUM LEVEL 11.7 MG/DL (8.8-10.2); CARBON DIOXIDE LEVEL 25 MEQ/L (21-32); CHLORIDE LEVEL 101 MEQ/L (98-107); CREATININE FOR GFR 1.04 MG/DL (0.55-1.02); GLOMERULAR FILTRATION RATE > 60.0 (>45); GLUCOSE, FASTING 115 MG/DL (80-110); POTASSIUM SERUM 3.9 MEQ/L (3.5-5.1); SODIUM LEVEL 135 MEQ/L (136-145)
--- NOTE | 2016-09-12 15:28 | DSES ---
DATE OF ADMISSION: 09/08/2016 DATE OF DISCHARGE: 09/12/2016 PRIMARY CARE PROVIDER: Charissa Delatorre NP DISCHARGE DIAGNOSES: 1. Hypercalcemia, workup under progress, most probably sarcoidosis. 2. Hypertension. 3. Hypokalemia. 4. Right breast fibroadenoma. 5. Lytic lesions on the skull x-ray. 6. Acute kidney injury, resolved. 7. Diabetes, on diet control. 8. Obstructive sleep apnea (MOLLY), on continuous positive airway pressure (CPAP). 9. Hyperlipidemia. 10. History of cerebrovascular accident (CVA) without any residual deficits. 11. Hilar lymphadenopathy, to followup with Dr. Mora as an outpatient. DISCHARGE MEDICATIONS: - atenolol 50 mg at bedtime - losartan 100 mg daily - Lasix 20 mg daily - prednisone 20 mg daily - clonidine 0.1 mg by mouth three times a day as needed if systolic blood pressure greater than 170 - potassium chloride 20 mEq by mouth daily HOSPITAL COURSE: This is a 66-year-old female who has been noted to have hypercalcemia since July of 2016 and sent in by her primary care provider this time for a calcium level of 13.2. The patient did complain of feeling weak and tired and losing weight over the past three months. The patient was recently started on regular vitamin D supplementation from May of 2016 which was stopped in July 2016 when she was first noted to be hypercalcemic. The patient had symptoms of bronchitis, cough, and nasal congestion with a deviated nasal septum going on for years. Here the patient had a CT chest which showed bilateral hilar lymphadenopathy, diffuse reticular nodular interstitial lung disease, and bilateral mediastinal lymphadenopathy, most consistent with granulomatous disease like sarcoidosis. The patient was evaluated by Dr. Mora from pulmonology and the plan is to have outpatient bronchoscopy and biopsy done within the next 2-3 weeks. In the hospital, the patient was initially treated with IV fluids, Lasix, and calcitonin for her calcium. After stopping calcitonin and IV fluids, her calcium again roxie so the patient was given one dose of pamidronate 60 mg. The patient's antihypertensive medications were adjusted. With current regimen of medications, her blood pressure is reasonably well-controlled. The patient also has malignancy workup in progress including parathyroid hormone-related protein (PTHrP), multiple myeloma workup. The results of which need to be followed up as an outpatient. The patient was also noted to be hypokalemic in the hospital which was replaced aggressively. Her sugars remained in acceptable control with only diet control and did not require any medications. Her tuberculosis (TB) interferon tests were negative. The patient also had a CT abdomen and pelvis done which showed moderate splenomegaly, diverticulosis. No mass or lymphadenopathy. CT chest showed a breast mass on the right, so the patient underwent breast ultrasound and it was found to be fibroadenoma which has been stable for many years. At present, the patient is symptom free. Her blood pressure is well-controlled. Functionally, she is at her baseline and is going to be discharged home in a stable condition. PHYSICAL EXAMINATION: VITAL SIGNS: Temperature 96.8, pulse 66, respiratory rate 18, blood pressure 155/73, pulse oximetry 98% on room air. GENERAL: Patient is awake, alert and oriented times three, sitting up in bed, in no acute distress. HEENT: Normocephalic, atraumatic. Moist mucous membranes. Anicteric eyes. CHEST: Overall poor air entry but there is no wheezing or crackles. CARDIOVASCULAR: S1, S2, regular. No rub, murmur, or gallop. ABDOMEN: Soft, nontender. Bowel sounds present. EXTREMITIES: No edema. LABORATORY DATA: WBC 10, hemoglobin 12.2, platelet count 229. Sodium 137, potassium 2.8 being replaced, chloride 103, bicarbonate 26, BUN 11, creatinine 0.8, calcium 10.9, bilirubin 0.7. Liver function tests are normal. Albumin is 2.8. Bone survey showed few scattered lytic lesions projecting over the frontal lobe, nonspecific. There were no other lytic or blastic lesions and no evidence of metastatic disease appreciated. CT scan of chest, abdomen and pelvis as above. DISPOSITION: The patient is discharged home in a stable condition. DISCHARGE INSTRUCTIONS: The patient is to followup with primary care provider for laboratory work in three days. The patient is to followup with Dr. Mora in 1-2 weeks. Regular diet. Activity as tolerated. The patient is to abstain from any calcium or vitamin D supplements. ADDITIONAL DISCHARGE DIAGNOSIS: Chronic deviated nasal septum with blockage of left nostril.
[2016-09-12 15:49] VITALS: BP 110/70
== END 2016-09-12 16:35 | disposition home or self-care (01) | DRG 641 ==
LOC: EDBD 15:59 → M ED 16:46 → M ED INP 19:35 → M PCU 22:20 → M MS5PR 09-09 14:00
PROVIDERS: ADMIT Internal Medicine; ATTEND Internal Medicine Nephrology
DX: E83.52 Hypercalcemia (principal); N17.9 Acute kidney failure, unspecified; I10 Essential (primary) hypertension; E87.6 Hypokalemia; E11.9 Type 2 diabetes mellitus without complications; R63.4 Abnormal weight loss; E78.5 Hyperlipidemia, unspecified; R59.0 Localized enlarged lymph nodes; D24.1 Benign neoplasm of right breast; G47.33 Obstructive sleep apnea (adult) (pediatric); Z99.89 Dependence on other enabling machines and devices; Z86.73 Personal history of transient ischemic attack (TIA), and cerebral infarction without residual deficits; Z79.52 Long term (current) use of systemic steroids; Z79.899 Other long term (current) drug therapy; Z88.8 Allergy status to other drugs, medicaments and biological substances; Z83.3 Family history of diabetes mellitus; Z80.7 Family history of other malignant neoplasms of lymphoid, hematopoietic and related tissues

== ENCOUNTER → 2016-09-15 | Outpatient (REF) | payer MEDICARE, MEDICAID ==
[~2016-09-15] MED LIST changes: +ATEN25TA PO; +CHLO25TA PO; +CLONI1TA PO; +COZA50TA PO; +DELT1TAB PO; +FURO20TA2 PO; +POTA10CA PO; +VITA50003 PO
[2016-09-20 13:04] LABS: BLOOD UREA NITROGEN 24 MG/DL (7-18); CREATININE FOR GFR 0.87 MG/DL (0.55-1.02); GLOMERULAR FILTRATION RATE > 60.0 (>45); GLUCOSE, FASTING 135 MG/DL (80-110); IONIZED CALCIUM 6.4 MG/DL (4.5-5.3)
[2016-09-20 13:05] LABS: ANION GAP 15 MEQ/L (8-16); CARBON DIOXIDE LEVEL 21 MEQ/L (21-32); CHLORIDE LEVEL 101 MEQ/L (98-107); POTASSIUM SERUM 3.4 MEQ/L (3.5-5.1); SODIUM LEVEL 137 MEQ/L (136-145)
== END ==
LOC: M LAB REF 13:09
PROVIDERS: ATTEND Internal Medicine Nephrology
DX: E83.52 Hypercalcemia (principal)

== ENCOUNTER → 2016-09-27 | Outpatient (REF) | payer MEDICARE, MEDICAID, OTHER | LOC: M SFHCPLAZ 10:10 | PROVIDERS: ATTEND Dermatology | DX: L92.9 Granulomatous disorder of the skin and subcutaneous tissue, unspecified (principal) ==

== ENCOUNTER → 2016-10-03 | Outpatient (CLI) | payer MEDICARE, MEDICAID ==
[2016-10-03 11:33] LABS: IONIZED CALCIUM 4.6 MG/DL (4.5-5.3)
[2016-10-03 12:24] LABS: ANION GAP 9 MEQ/L (8-16); BLOOD UREA NITROGEN 19 MG/DL (7-18); CALCIUM LEVEL 8.4 MG/DL (8.8-10.2); CARBON DIOXIDE LEVEL 25 MEQ/L (21-32); CHLORIDE LEVEL 109 MEQ/L (98-107); CREATININE FOR GFR 0.86 MG/DL (0.55-1.02); GLOMERULAR FILTRATION RATE > 60.0 (>45); GLUCOSE, FASTING 90 MG/DL (80-110); POTASSIUM SERUM 3.6 MEQ/L (3.5-5.1); SODIUM LEVEL 143 MEQ/L (136-145)
== END ==
LOC: M LAB 11:12
PROVIDERS: ATTEND Nurse Practitioner Family
DX: E83.52 Hypercalcemia (principal)

== ENCOUNTER → 2016-10-25 | Outpatient (CLI) | payer MEDICARE, MEDICAID ==
--- NOTE | 2016-10-25 12:54 | PFTRPT ---
Tech: KhoaThien SANCHES RRT Age: 66 Sex: Female Race: Black Height: 63.50 Inches Weight: 185.00 Lbs BSA: 1.88 Diagnosis: D86.2 TECH NOTES: Test meets the ATS standards for acceptability and repeatability. The patient was given four puffs of albuterol for postbronchodilator. PULMONARY FUNCTION REPORT ORDERING PROVIDER: Karthik Mora DO DATE OF SERVICE: 10/25/16 SPIROMETRY: Pre and post bronchodilator study of excellent technical quality. The forced vital capacity is normal. The FEV1 is in proportion. The obstructive index is, therefore, normal. FLOW VOLUME LOOP: The expiratory limb of the flow volume loop is normal. No bronchodilator response is identified. LUNG VOLUMES: The total lung capacity is normal. The residual volume is in proportion. DIFFUSION CAPACITY: The diffusion capacity is normal. HEMOGLOBIN: The hemoglobin is acceptable at 15.2. AIRWAY MECHANICS: Airways resistance and conductance are normal. IMPRESSION: Normal study. MTDD
== END ==
LOC: M CARPUL 12:10
PROVIDERS: ATTEND Internal Medicine Pulmonary Disease
DX: D86.2 Sarcoidosis of lung with sarcoidosis of lymph nodes (principal)

== ENCOUNTER → 2016-10-25 | Outpatient (CLI) | payer MEDICARE, MEDICAID ==
[2016-10-25 19:22] LABS: ALBUMIN 3.2 GM/DL (3.2-5.2); ALBUMIN/GLOBULIN RATIO 0.76 (1.00-1.93); ALKALINE PHOSPHATASE 47 U/L (45-117); ALT/SGPT 19 U/L (12-78); AST/SGOT 6 U/L (15-37); BILIRUBIN,DIRECT 0.1 MG/DL (0.0-0.2); BILIRUBIN,TOTAL 0.5 MG/DL (0.2-1.0); BLOOD UREA NITROGEN 18 MG/DL (7-18); CREATININE FOR GFR 0.92 MG/DL (0.55-1.02); GLOMERULAR FILTRATION RATE > 60.0 (>45); TOTAL PROTEIN 7.4 GM/DL (6.4-8.2)
== END ==
LOC: M SMT 14:23
PROVIDERS: ATTEND Internal Medicine Pulmonary Disease
DX: D86.2 Sarcoidosis of lung with sarcoidosis of lymph nodes (principal)

== ENCOUNTER → 2016-12-01 | Outpatient (CLI) | payer MEDICARE, MEDICAID ==
[~2016-12-01] MED LIST changes: -ALTA10CA3 PO; +ALTA1CAP4 PO; +CARD120T4 PO; +COLA100C5 PO; +PRED10PA2 PO; +VITA1CAP40 PO; -VITA50003 PO
[2016-12-01 15:50] LABS: ANION GAP 6 MEQ/L (8-16); BLOOD UREA NITROGEN 17 MG/DL (7-18); CALCIUM LEVEL 9.8 MG/DL (8.8-10.2); CARBON DIOXIDE LEVEL 27 MEQ/L (21-32); CHLORIDE LEVEL 104 MEQ/L (98-107); CHOLESTEROL LEVEL 258 MG/DL (<200); CREATININE FOR GFR 0.75 MG/DL (0.55-1.02); GLOMERULAR FILTRATION RATE > 60.0 (>45); GLUCOSE, FASTING 116 MG/DL (80-110); POTASSIUM SERUM 3.8 MEQ/L (3.5-5.1); SODIUM LEVEL 137 MEQ/L (136-145); TRIGLYCERIDES LEVEL 63 MG/DL (<150)
== END ==
LOC: M LAB 15:01
PROVIDERS: ATTEND Nurse Practitioner Family
DX: E83.52 Hypercalcemia (principal); E87.6 Hypokalemia; E11.9 Type 2 diabetes mellitus without complications; E78.5 Hyperlipidemia, unspecified

== ENCOUNTER 2016-12-09 11:22 | Emergency (ER) | payer MEDICARE, MEDICAID ==
[~2016-12-09] VITALS: Ht 162.6 cm; Wt 83.7 kg
[~2016-12-09 11:22] MED LIST changes: -CARD120T4 PO; -COLA100C5 PO; -PRED10PA2 PO
[2016-12-09] MEDS ORDERED: PRED10PA2 PO (11:40)
[2016-12-09] MEDS ORDERED: CARD120T4 PO (11:40)
[2016-12-09] MEDS ORDERED: COLA100C5 PO (11:40)
[2016-12-09 12:49] VITALS: BP 150/98
--- NOTE | 2016-12-09 13:37 | REP ---
CT of the brain without IV contrast: There are no comparisons. There is no hemorrhage. There is no edema, mass effect or midline shift. The cortical stripe is unremarkable. The ventricles and sulci are normal size. The visualized paranasal sinuses and mastoid air cells are clear. Impression: There is no hemorrhage, acute infarct or mass. Negative CT study of the brain. Signed by Nick Griffith MD 12/09/2016 01:29 P
--- NOTE | 2016-12-10 19:59 | ECGEPIP ---
Stationary ECG Study [facility] - ED Test Date: 2016-12-09 Pat Name: MARINO NELSON Department: Room: - Gender: F Typing Bookkeeper: angélica : 1950 Requested By: Estevan Benedict PA-C Order Number: [id number] Reading MD: Lesly Delgado Measurements Intervals [place] Rate: 79 P: 62 ND: 193 QRS: -41 QRSD: 83 T: 60 QT: 381 QTc: 437 Interpretive Statements SINUS RHYTHM MARKED LEFT AXIS DEVIATION NONSPECIFIC T-WAVE ABNORMALITY SIMILAR 09/08/16 Electronically Signed On 12-10-2016 19:59:19 EDT by Lesly Delgado
== END 2016-12-09 14:04 | disposition home or self-care (01) ==
LOC: M ED 11:22
DX: I10 Essential (primary) hypertension (principal); R41.82 Altered mental status, unspecified; Z13.29 Encounter for screening for other suspected endocrine disorder; E11.9 Type 2 diabetes mellitus without complications; R41.3 Other amnesia; I25.10 Atherosclerotic heart disease of native coronary artery without angina pectoris; I25.2 Old myocardial infarction; Z88.8 Allergy status to other drugs, medicaments and biological substances; Z91.041 Radiographic dye allergy status; Z79.899 Other long term (current) drug therapy

== ENCOUNTER → 2016-12-09 | Outpatient (CLI) | payer MEDICARE, MEDICAID ==
[2016-12-09 11:50] LABS: BASO % 0.4 % (0.0-1.0); EOS % 0.3 % (0.0-3.0); LARGE UNSTAINED CELL # 0.1 K/mm3 (0.0-0.4); LARGE UNSTAINED CELL % 1.2 % (0.0-4.0); LYMPH % 8.5 % (24.0-44.0); MEAN CORPUSCULAR VOLUME 88.1 fl (80.0-96.0); MONO # 0.3 K/mm3 (0.0-0.8); MONO % 2.6 % (0.0-5.0); PLATELET COUNT, AUTOMATED 236 k/mm3 (150-450); RED CELL DISTRIBUTION WIDTH 13.8 % (11.5-14.5); WHITE BLOOD COUNT 10.3 K/mm3 (4.0-10.0)
[2016-12-09 12:15] LABS: FOLATE 18.2 NG/ML; VITAMIN B12 LEVEL 520 PG/ML
[2016-12-09 12:20] LABS: ALBUMIN 3.7 GM/DL (3.2-5.2); ALBUMIN/GLOBULIN RATIO 0.88 (1.00-1.93); ALKALINE PHOSPHATASE 55 U/L (45-117); ALT/SGPT 17 U/L (12-78); ANION GAP 9 MEQ/L (8-16); AST/SGOT 9 U/L (15-37); BILIRUBIN,TOTAL 0.7 MG/DL (0.2-1.0); BLOOD UREA NITROGEN 16 MG/DL (7-18); CALCIUM LEVEL 9.5 MG/DL (8.8-10.2); CARBON DIOXIDE LEVEL 27 MEQ/L (21-32); CHLORIDE LEVEL 103 MEQ/L (98-107); CREATININE FOR GFR 0.75 MG/DL (0.55-1.02); FREE T4 1.02 NG/DL (0.76-1.46); GLOMERULAR FILTRATION RATE > 60.0 (>45); GLUCOSE, FASTING 103 MG/DL (80-110); POTASSIUM SERUM 3.9 MEQ/L (3.5-5.1); SODIUM LEVEL 139 MEQ/L (136-145); T UPTAKE 33 % (30-39); THYROXINE (T4) 8.5 UG/DL (4.5-12.0); TOTAL PROTEIN 7.9 GM/DL (6.4-8.2)
[2016-12-09 12:29] LABS: ERYTHROCYTE SEDIMENTATION RATE 25 mm/hr (0-30)
[2016-12-14 00:09] LABS: VITAMIN E LEVEL 13.6 mg/L (6.5-21.5)
== END ==
LOC: M LAB 10:35
PROVIDERS: ATTEND Psychiatry & Neurology Neurology
DX: R41.82 Altered mental status, unspecified (principal); Z13.29 Encounter for screening for other suspected endocrine disorder; E11.9 Type 2 diabetes mellitus without complications; R41.3 Other amnesia

== ENCOUNTER → 2017-03-06 | Outpatient (CLI) | payer MEDICARE, MEDICAID ==
[~2017-03-06] MED LIST changes: +CARD120T4 PO; +COLA100C5 PO; +PRED10PA2 PO
[2017-03-06 10:35] LABS: ANION GAP 9 MEQ/L (8-16); BLOOD UREA NITROGEN 11 MG/DL (7-18); CALCIUM LEVEL 8.8 MG/DL (8.8-10.2); CARBON DIOXIDE LEVEL 29 MEQ/L (21-32); CHLORIDE LEVEL 105 MEQ/L (98-107); CHOLESTEROL LEVEL 262 MG/DL (<200); CREATININE FOR GFR 0.84 MG/DL (0.55-1.02); GLOMERULAR FILTRATION RATE > 60.0 (>45); GLUCOSE, FASTING 90 MG/DL (80-110); POTASSIUM SERUM 3.7 MEQ/L (3.5-5.1); SODIUM LEVEL 143 MEQ/L (136-145); TRIGLYCERIDES LEVEL 208 MG/DL (<150)
== END ==
LOC: M LAB 09:31
PROVIDERS: ATTEND Nurse Practitioner Family
DX: E87.6 Hypokalemia (principal); E11.9 Type 2 diabetes mellitus without complications; E83.52 Hypercalcemia; E78.5 Hyperlipidemia, unspecified

== ENCOUNTER → 2017-03-08 | Outpatient (CLI) | payer MEDICARE, MEDICAID ==
--- NOTE | 2017-03-09 07:39 | REP ---
Clinical: Enlarged thyroid gland. Technique: Real time milner scale ultrasound examination using linear high frequency transducer. Findings: The thyroid gland is diffusely heterogeneous, but normal in contour and size. The right thyroid lobe measures 3.3 x 1.8 x 1.5 cm in includes 8-0.0 x 2.9 x 1.7 cm simple upper pole cyst, 3.8 x 3.8 x 2.7 cm complex lower pole cyst, and 6.1 x 8.4 x 5.4 mm heterogeneous hypoechoic midpole nodule. The left lobe measures 2.9 x 1.4 x 1.2 cm and includes a 4.4 x 5.0 x 3.6 mm complex hypoechoic cyst/nodule. Isthmus measures 4 mm in width. Impression: Heterogeneous thyroid gland with few scattered nodules as detailed above Signed by Solomon Ngo MD 03/09/2017 07:30 A
== END ==
LOC: M LAB 16:21
PROVIDERS: ATTEND Nurse Practitioner Adult Health
DX: E04.8 Other specified nontoxic goiter (principal)

== ENCOUNTER → 2017-04-10 | Outpatient (CLI) | payer MEDICARE, MEDICAID | LOC: M RAD 12:29 | PROVIDERS: ATTEND Nurse Practitioner Adult Health | DX: I10 Essential (primary) hypertension (principal) ==

== ENCOUNTER → 2017-04-12 | Outpatient (CLI) | payer MEDICARE, MEDICAID ==
--- NOTE | 2017-04-12 09:20 | REP ---
RENAL ULTRASOUND WITH DUPLEX DOPPLER RENAL ARTERY EVALUATION: Real-time sonographic evaluation of the kidneys performed. The kidneys are normal in size and echotexture, right kidney measuring 11.4 x 3.5 x 5.8 cm and left kidney 10.2 x 4.5 x 5.4 cm. There is no hydronephrosis, renal mass or nephrolithiasis. Urinary bladder is mildly distended and grossly unremarkable. Ultrasound evaluation and duplex Doppler interrogation of the main renal arteries is performed. Abdominal aorta is not well seen due to overlying bowel gas nor is the origin of the left main renal artery. Peak systolic velocity of the right main renal artery distally is 128 cm/s. Resistive indices are measured in the upper, middle and lower thirds of the right kidney and range between 0.58 and 0.67. Accelerations times range between 0.023 and 0.048. Peak systolic velocity in the distal left main renal artery is 63 cm/s. Resistive indices of the left kidney range between 0.65 and 0.71. Acceleration times range between 0.033 and 0.044. IMPRESSION: Kidneys appear unremarkable. The renal artery Doppler study is somewhat suboptimal due to overlying bowel gas as the abdominal aorta and origin of the left main renal artery are obscured. Otherwise there is no definite evidence of significant renal artery stenosis. Consider CTA or MRA. Signed by Nick Gómez MD 04/12/2017 01:53 P
== END ==
LOC: M RAD 06:59
PROVIDERS: ATTEND Nurse Practitioner Adult Health
DX: I10 Essential (primary) hypertension (principal)

== ENCOUNTER → 2017-07-24 | Outpatient (CLI) | payer MEDICARE, MEDICAID | LOC: M CARPUL 09:41 | DX: D86.9 Sarcoidosis, unspecified (principal) | CPT/HCPCS: 94060 ==

== ENCOUNTER → 2017-08-02 | Outpatient (CLI) | payer MEDICARE, MEDICAID ==
[2017-08-04 00:06] LABS: ANGIOTENSIN 1 CONVERTING ENZYM 30 U/L (14-82)
== END ==
LOC: M RAD 09:51
DX: D86.9 Sarcoidosis, unspecified (principal); N63.10 Unspecified lump in the right breast, unspecified quadrant; E83.52 Hypercalcemia; E78.5 Hyperlipidemia, unspecified; E11.9 Type 2 diabetes mellitus without complications; Z79.899 Other long term (current) drug therapy
CPT/HCPCS: 71250

== ENCOUNTER → 2017-08-02 | Outpatient (CLI) | payer MEDICARE, MEDICAID ==
[2017-08-02 12:22] LABS: ESTIMATED AVERAGE GLUCOSE 174 MG/DL (60-110); HEMOGLOBIN A1c 7.7 %
[2017-08-02 12:34] LABS: CREATININE, URINE 91.8 MG/DL; MALB URINE SIEMENS 25.6 MG/L; MAU/CREAT RATIO 27.8 MCG/MG (0.0-30.0)
[2017-08-02 13:13] LABS: ALKALINE PHOSPHATASE 59 U/L (45-117); ALT/SGPT 22 U/L (12-78); ANION GAP 8 MEQ/L (8-16); AST/SGOT 10 U/L (7-37); BILIRUBIN,TOTAL 0.7 MG/DL (0.2-1.0); BLOOD UREA NITROGEN 18 MG/DL (7-18); CALCIUM LEVEL 8.8 MG/DL (8.8-10.2); CARBON DIOXIDE LEVEL 28 MEQ/L (21-32); CHLORIDE LEVEL 106 MEQ/L (98-107); CHOLESTEROL LEVEL 272 MG/DL (<200); CREATININE FOR GFR 0.71 MG/DL (0.55-1.30); GLOMERULAR FILTRATION RATE > 60.0 (>45); GLUCOSE, FASTING 107 MG/DL (70-100); HDL CHOLESTEROL 131 MG/DL (>40); POTASSIUM SERUM 3.3 MEQ/L (3.5-5.1); SODIUM LEVEL 142 MEQ/L (136-145); TRIGLYCERIDES LEVEL 117 MG/DL (<150)
[2017-08-02 13:14] LABS: ALBUMIN 3.4 GM/DL (3.2-5.2); ALBUMIN/GLOBULIN RATIO 0.92 (1.00-1.93); CHOLESTEROL RISK RATIO 2.076 (<5); LDL CHOLESTEROL 117.6 MG/DL (<100); NON-HDL-C 141 MG/DL; TOTAL PROTEIN 7.1 GM/DL (6.4-8.2)
== END ==
LOC: M LAB 10:44
DX: E83.52 Hypercalcemia (principal); E78.5 Hyperlipidemia, unspecified; E11.9 Type 2 diabetes mellitus without complications

== ENCOUNTER → 2017-08-02 | Outpatient (CLI) | payer MEDICARE, MEDICAID ==
[2017-08-02 11:36] LABS: BASO % 0.3 % (0.0-1.0); EOS # 0.1 10^3/uL (0.0-0.50); HEMATOCRIT 41.6 % (36.0-47.0); IMMATURE GRANULOCYTE % 0.5 % (0-3.0); LYMPH % 24.3 % (24.0-44.0); MEAN CORPUSCULAR HEMOGLOBIN 29.7 pg (27.0-33.0); MEAN CORPUSCULAR HGB CONC 33.7 g/dl (32.0-36.5); MEAN CORPUSCULAR VOLUME 88.3 fl (80.0-96.0); MONO % 8.2 % (0.0-5.0); NEUTROPHILS % 65.7 % (36.0-66.0); PLATELET COUNT, AUTOMATED 233 10^3/uL (150-450); RED BLOOD COUNT 4.71 10^6/uL (4.00-5.40); RED CELL DISTRIBUTION WIDTH 13.2 % (11.5-14.5); WHITE BLOOD COUNT 12.2 10^3/uL (4.0-10.0)
[2017-08-02 11:42] LABS: APPEARANCE, URINE CLEAR (CLEAR); BACTERIA, URINE AUTO NEGATIVE (NEGATIVE); BILIRUBIN, URINE AUTO NEGATIVE (NEGATIVE); BLOOD, URINE BLOOD NEGATIVE (NEGATIVE); COLOR, URINE YELLOW (YELLOW); GLUCOSE, URINE (UA) AUTO NEGATIVE (NEGATIVE); KETONE, URINE AUTO NEGATIVE (NEGATIVE); LEUKOCYTE ESTERASE, URINE AUTO 2+ (NEGATIVE); NITRITE, URINE AUTO NEGATIVE (NEGATIVE); PROTEIN, URINE AUTO NEGATIVE (NEGATIVE); RBC, URINE AUTO 2 /HPF (0-3); SPECIFIC GRAVITY URINE AUTO 1.014 (1.002-1.035); SQUAMOUS EPITHELIAL CELL UR AU 1 /HPF (0-6); UROBILINOGEN, URINE AUTO 0.2 mg/dL (0.0-2.0); WBC, URINE AUTO 13 /HPF (0-3)
[2017-08-02 12:05] LABS: CORTISOL AM 1.5 UG/DL (4.3-22.4); PTH INTACT 79.2 PG/ML (18.5-88.0); TOTAL T3 93.7 NG/DL (60.0-181.0)
[2017-08-02 13:13] LABS: ALBUMIN 3.4 GM/DL (3.2-5.2); ALBUMIN/GLOBULIN RATIO 0.92 (1.00-1.93); ALKALINE PHOSPHATASE 59 U/L (45-117); ALT/SGPT 22 U/L (12-78); ANION GAP 11 MEQ/L (8-16); AST/SGOT 9 U/L (7-37); BILIRUBIN,TOTAL 0.8 MG/DL (0.2-1.0); BLOOD UREA NITROGEN 18 MG/DL (7-18); CALCIUM LEVEL 8.9 MG/DL (8.8-10.2); CARBON DIOXIDE LEVEL 27 MEQ/L (21-32); CHLORIDE LEVEL 105 MEQ/L (98-107); CREATININE FOR GFR 0.68 MG/DL (0.55-1.30); FREE T4 0.95 NG/DL (0.76-1.46); GLOMERULAR FILTRATION RATE > 60.0 (>45); GLUCOSE, FASTING 107 MG/DL (70-100); POTASSIUM SERUM 3.3 MEQ/L (3.5-5.1); SODIUM LEVEL 143 MEQ/L (136-145); TOTAL PROTEIN 7.1 GM/DL (6.4-8.2)
== END ==
LOC: M LAB 10:52
DX: E83.52 Hypercalcemia (principal)

== ENCOUNTER → 2017-10-04 | Outpatient (CLI) | payer MEDICARE, MEDICAID ==
[2017-10-04 15:01] LABS: URIC ACID 5.9 MG/DL (2.6-6.0)
[2017-10-06 13:38] LABS: HEPATITIS C VIRUS ABY INDEX < 0.0 INDEX (<0.8)
== END ==
LOC: M LAB 13:34
DX: M25.432 Effusion, left wrist (principal)
CPT/HCPCS: 73110

== ENCOUNTER → 2017-10-19 | Outpatient (CLI) | payer MEDICARE, MEDICAID ==
[2017-10-19 13:13] LABS: BASO # 0.1 10^3/uL (0.0-0.2); BASO % 0.6 % (0.0-1.0); EOS # 0.2 10^3/uL (0.0-0.50); HEMATOCRIT 41.5 % (36.0-47.0); HEMOGLOBIN 13.8 g/dl (12.0-15.5); IMMATURE GRANULOCYTE % 0.4 % (0-3.0); LYMPH # 1.6 10^3/uL (1.5-4.5); MEAN CORPUSCULAR HEMOGLOBIN 29.1 pg (27.0-33.0); MEAN CORPUSCULAR HGB CONC 33.3 g/dl (32.0-36.5); MEAN CORPUSCULAR VOLUME 87.6 fl (80.0-96.0); MONO # 0.8 10^3/uL (0.0-0.8); MONO % 9.8 % (0.0-5.0); NEUTROPHILS # 5.8 10^3/uL (1.8-7.7); NEUTROPHILS % 68.2 % (36.0-66.0); PLATELET COUNT, AUTOMATED 272 10^3/uL (150-450); RED BLOOD COUNT 4.74 10^6/uL (4.00-5.40); WHITE BLOOD COUNT 8.5 10^3/uL (4.0-10.0)
[2017-10-19 13:15] LABS: APPEARANCE, URINE HAZY (CLEAR); BACTERIA, URINE AUTO NEGATIVE (NEGATIVE); BILIRUBIN, URINE AUTO NEGATIVE (NEGATIVE); BLOOD, URINE BLOOD NEGATIVE (NEGATIVE); COLOR, URINE YELLOW (YELLOW); GLUCOSE, URINE (UA) AUTO NEGATIVE (NEGATIVE); KETONE, URINE AUTO NEGATIVE (NEGATIVE); LEUKOCYTE ESTERASE, URINE AUTO 3+ (NEGATIVE); NITRITE, URINE AUTO NEGATIVE (NEGATIVE); PROTEIN, URINE AUTO NEGATIVE (NEGATIVE); RBC, URINE AUTO 2 /HPF (0-3); SPECIFIC GRAVITY URINE AUTO 1.011 (1.002-1.035); SQUAMOUS EPITHELIAL CELL UR AU 6 /HPF (0-6); UROBILINOGEN, URINE AUTO 0.2 mg/dL (0.0-2.0); WBC, URINE AUTO 10 /HPF (0-3)
[2017-10-19 14:20] LABS: ALBUMIN 3.3 GM/DL (3.2-5.2); ALBUMIN/GLOBULIN RATIO 0.87 (1.00-1.93); ALKALINE PHOSPHATASE 72 U/L (45-117); ALT/SGPT 21 U/L (12-78); ANION GAP 7 MEQ/L (8-16); AST/SGOT 12 U/L (7-37); BILIRUBIN,TOTAL 0.7 MG/DL (0.2-1.0); BLOOD UREA NITROGEN 10 MG/DL (7-18); CALCIUM LEVEL 8.8 MG/DL (8.8-10.2); CARBON DIOXIDE LEVEL 28 MEQ/L (21-32); CHLORIDE LEVEL 107 MEQ/L (98-107); CREATININE FOR GFR 0.65 MG/DL (0.55-1.30); GLOMERULAR FILTRATION RATE > 60.0 (>45); GLUCOSE, FASTING 108 MG/DL (70-100); MAGNESIUM LEVEL 2.2 MG/DL (1.8-2.4); POTASSIUM SERUM 3.7 MEQ/L (3.5-5.1); SODIUM LEVEL 142 MEQ/L (136-145); TOTAL PROTEIN 7.1 GM/DL (6.4-8.2)
== END ==
LOC: M LAB 11:30
DX: N39.0 Urinary tract infection, site not specified (principal); D86.9 Sarcoidosis, unspecified; E66.3 Overweight; E83.52 Hypercalcemia; I10 Essential (primary) hypertension
CPT/HCPCS: 83735

== ENCOUNTER → 2018-04-25 | Outpatient (CLI) | payer MEDICARE, MEDICAID ==
[2018-04-25 12:12] LABS: BASO # 0.1 10^3/uL (0.0-0.2); BASO % 0.7 % (0.0-1.0); EOS # 0.3 10^3/uL (0.0-0.50); EOS % 3.1 % (0.0-3.0); HEMATOCRIT 41.3 % (36.0-47.0); HEMOGLOBIN 13.6 g/dl (12.0-15.5); IMMATURE GRANULOCYTE % 0.2 % (0-3.0); LYMPH # 1.7 10^3/uL (1.5-4.5); LYMPH % 20.4 % (24.0-44.0); MEAN CORPUSCULAR HEMOGLOBIN 28.2 pg (27.0-33.0); MEAN CORPUSCULAR HGB CONC 32.9 g/dl (32.0-36.5); MEAN CORPUSCULAR VOLUME 85.7 fl (80.0-96.0); MONO # 0.9 10^3/uL (0.0-0.8); NEUTROPHILS # 5.2 10^3/uL (1.8-7.7); NEUTROPHILS % 64.6 % (36.0-66.0); PLATELET COUNT, AUTOMATED 254 10^3/uL (150-450); RED BLOOD COUNT 4.82 10^6/uL (4.00-5.40); RED CELL DISTRIBUTION WIDTH 13.8 % (11.5-14.5); WHITE BLOOD COUNT 8.1 10^3/uL (4.0-10.0)
[2018-04-25 12:43] LABS: ALBUMIN 3.3 GM/DL (3.2-5.2); ALKALINE PHOSPHATASE 83 U/L (45-117); ALT/SGPT 29 U/L (12-78); ANION GAP 8 MEQ/L (8-16); AST/SGOT 15 U/L (7-37); BILIRUBIN,TOTAL 0.8 MG/DL (0.2-1.0); BLOOD UREA NITROGEN 16 MG/DL (7-18); CALCIUM LEVEL 8.8 MG/DL (8.8-10.2); CARBON DIOXIDE LEVEL 28 MEQ/L (21-32); CHLORIDE LEVEL 105 MEQ/L (98-107); CHOLESTEROL LEVEL 227 MG/DL (<200); CHOLESTEROL RISK RATIO 2.873 (<5); CREATININE FOR GFR 0.86 MG/DL (0.55-1.30); GLOMERULAR FILTRATION RATE > 60.0 (>45); GLUCOSE, FASTING 113 MG/DL (70-100); HDL CHOLESTEROL 79 MG/DL (>40); LDL CHOLESTEROL 125 MG/DL (<100); MAGNESIUM LEVEL 1.9 MG/DL (1.8-2.4); NON-HDL-C 148 MG/DL; POTASSIUM SERUM 3.6 MEQ/L (3.5-5.1); SODIUM LEVEL 141 MEQ/L (136-145); TOTAL PROTEIN 7.4 GM/DL (6.4-8.2); TRIGLYCERIDES LEVEL 115 MG/DL (<150)
[2018-04-25 12:48] LABS: TOTAL 25(OH) VITAMIN D 17.9 NG/ML (30.0-100.0); VITAMIN B12 LEVEL 961 PG/ML
[2018-04-25 12:49] LABS: FOLATE 9.9 NG/ML
[2018-04-25 14:13] LABS: ESTIMATED AVERAGE GLUCOSE 154 MG/DL (60-110)
== END ==
LOC: M LAB 11:09
DX: I10 Essential (primary) hypertension (principal); Z13.9 Encounter for screening, unspecified
CPT/HCPCS: 82746

== ENCOUNTER → 2018-07-28 | Outpatient (CLI) | payer MEDICARE, MEDICAID ==
[~2018-07-28] MED LIST changes: +AMLO10TA5 PO; +HYDR25TAB PO; +KLOR10TA76 PO; -POTA10CA PO; -VITA1CAP40 PO; +VITA50005 PO
[2018-07-28 16:06] LABS: BASO # 0.1 10^3/uL (0.0-0.2); BASO % 0.7 % (0.0-1.0); EOS # 0.2 10^3/uL (0.0-0.50); EOS % 2.2 % (0.0-3.0); HEMATOCRIT 41.7 % (36.0-47.0); HEMOGLOBIN 13.7 g/dl (12.0-15.5); LYMPH # 1.5 10^3/uL (1.5-4.5); LYMPH % 18.4 % (24.0-44.0); MEAN CORPUSCULAR HEMOGLOBIN 28.7 pg (27.0-33.0); MEAN CORPUSCULAR HGB CONC 32.9 g/dl (32.0-36.5); MEAN CORPUSCULAR VOLUME 87.4 fl (80.0-96.0); NEUTROPHILS # 5.6 10^3/uL (1.8-7.7); NEUTROPHILS % 66.6 % (36.0-66.0); PLATELET COUNT, AUTOMATED 241 10^3/uL (150-450); RED BLOOD COUNT 4.77 10^6/uL (4.00-5.40); WHITE BLOOD COUNT 8.4 10^3/uL (4.0-10.0)
[2018-07-28 16:31] LABS: HEMOGLOBIN A1c 6.4 %
[2018-07-28 16:42] LABS: ALBUMIN 3.3 GM/DL (3.2-5.2); ALT/SGPT 28 U/L (12-78); BILIRUBIN,TOTAL 0.6 MG/DL (0.2-1.0); BLOOD UREA NITROGEN 15 MG/DL (7-18); CALCIUM LEVEL 8.7 MG/DL (8.8-10.2); CARBON DIOXIDE LEVEL 30 MEQ/L (21-32); CHLORIDE LEVEL 103 MEQ/L (98-107); CHOLESTEROL LEVEL 206 MG/DL (<200); CHOLESTEROL RISK RATIO 2.942 (<5); GLOMERULAR FILTRATION RATE > 60.0 (>45); GLUCOSE, FASTING 94 MG/DL (70-100); HDL CHOLESTEROL 70 MG/DL (>40); LDL CHOLESTEROL 96 MG/DL (<100); NON-HDL-C 136 MG/DL; POTASSIUM SERUM 3.5 MEQ/L (3.5-5.1); SODIUM LEVEL 140 MEQ/L (136-145); TOTAL PROTEIN 7.4 GM/DL (6.4-8.2); TRIGLYCERIDES LEVEL 198 MG/DL (<150)
== END ==
LOC: M LAB 14:35
PROVIDERS: ATTEND Nurse Practitioner Family
DX: Z13.9 Encounter for screening, unspecified (principal); I10 Essential (primary) hypertension; E87.6 Hypokalemia; E83.52 Hypercalcemia; E11.9 Type 2 diabetes mellitus without complications; E78.5 Hyperlipidemia, unspecified

== ENCOUNTER → 2018-08-10 | Outpatient (CLI) | payer MEDICARE, MEDICAID ==
[2018-08-14 14:12] LABS: ALDOSTERONE 17.3 ng/dL (0.0-30.0)
[2018-08-18 00:07] LABS: RENIN LEVEL <0.167 ng/mL/hr (0.167-5.380)
== END ==
LOC: M LAB 15:55
PROVIDERS: ATTEND Physician Assistant
DX: I11.9 Hypertensive heart disease without heart failure (principal)

== ENCOUNTER → 2018-08-15 | Outpatient (REF) | payer MEDICARE, MEDICAID ==
[2018-08-20 14:14] LABS: DOPAMINE 451 ug/24 hr (0-510); DOPAMINE TOTAL URINE 196 ug/L (Undefined); EPINEPHRINE 2 ug/24 hr (0-20); EPINEPHRINE TOTAL URINE 1 ug/L (Undefined); METANEPHRINE TOTAL URINE 37 ug/L (Undefined); METANEPHRINE URINE 85 ug/24 hr (45-290); NOREPINEPHRINE 58 ug/24 hr (0-135); NOREPINEPHRINE TOTAL URINE 25 ug/L (Undefined); NORMETANEPHRINE TOTAL URINE 218 ug/L (Undefined); NORMETANEPHRINE URINE 501 ug/24 hr (82-500)
== END ==
LOC: M LAB REF 12:42
PROVIDERS: ATTEND Physician Assistant
DX: I11.9 Hypertensive heart disease without heart failure (principal)

== ENCOUNTER → 2019-01-11 | Outpatient (CLI) | payer MEDICARE, MEDICAID ==
[~2019-01-11] MED LIST changes: +GLYB-147 PO; -GLYB5TA PO
[2019-01-11 15:22] LABS: HEMATOCRIT 43.9 % (36.0-47.0); HEMOGLOBIN 14.4 g/dl (12.0-15.5); MEAN CORPUSCULAR HEMOGLOBIN 29.2 pg (27.0-33.0); MEAN CORPUSCULAR HGB CONC 32.8 g/dl (32.0-36.5); PLATELET COUNT, AUTOMATED 218 10^3/uL (150-450); RED BLOOD COUNT 4.93 10^6/uL (4.00-5.40); WHITE BLOOD COUNT 7.8 10^3/uL (4.0-10.0)
[2019-01-11 15:42] LABS: HEMOGLOBIN A1c 6.8 %
[2019-01-11 15:49] LABS: CHOLESTEROL RISK RATIO 2.441 (<5)
== END ==
LOC: M LAB 14:45
PROVIDERS: ATTEND Internal Medicine
DX: E11.9 Type 2 diabetes mellitus without complications (principal); E78.5 Hyperlipidemia, unspecified

== ENCOUNTER → 2019-06-25 | Outpatient (CLI) | payer MEDICARE, MEDICAID ==
[2019-06-25 14:32] LABS: ALBUMIN 3.7 GM/DL (3.2-5.2); ALT/SGPT 20 U/L (12-78); BILIRUBIN,TOTAL 0.7 MG/DL (0.2-1.0); BLOOD UREA NITROGEN 13 MG/DL (7-18); CALCIUM LEVEL 9.2 MG/DL (8.8-10.2); CARBON DIOXIDE LEVEL 31 MEQ/L (21-32); CHLORIDE LEVEL 106 MEQ/L (98-107); CREATININE FOR GFR 0.82 MG/DL (0.55-1.30); GLOMERULAR FILTRATION RATE > 60.0 (>45); GLUCOSE, FASTING 98 MG/DL (70-100); POTASSIUM SERUM 3.9 MEQ/L (3.5-5.1); SODIUM LEVEL 140 MEQ/L (136-145); TOTAL PROTEIN 8.1 GM/DL (6.4-8.2)
[2019-06-25 14:43] LABS: HEMOGLOBIN A1c 6.7 %
== END ==
LOC: M LAB 13:12
PROVIDERS: ATTEND Internal Medicine
DX: E78.5 Hyperlipidemia, unspecified (principal); E11.9 Type 2 diabetes mellitus without complications

== ENCOUNTER → 2019-10-28 | Outpatient (CLI) | payer MEDICARE, MEDICAID ==
[2019-10-28 11:09] LABS: BASO # 0.1 10^3/uL (0.0-0.2); BASO % 0.7 % (0.0-1.0); EOS # 0.1 10^3/uL (0.0-0.5); EOS % 1.6 % (0.0-3.0); HEMATOCRIT 43.6 % (36.0-47.0); HEMOGLOBIN 14.2 g/dl (12.0-15.5); LYMPH # 2.1 10^3/uL (1.5-5.0); LYMPH % 23.8 % (24.0-44.0); MEAN CORPUSCULAR HGB CONC 32.6 g/dl (32.0-36.5); MONO # 0.8 10^3/uL (0.0-0.8); MONO % 9.4 % (0.0-5.0); NEUTROPHILS # 5.6 10^3/uL (1.5-8.5); NEUTROPHILS % 64.2 % (36.0-66.0); PLATELET COUNT, AUTOMATED 234 10^3/uL (150-450); WHITE BLOOD COUNT 8.7 10^3/uL (4.0-10.0)
[2019-10-28 11:39] LABS: ALBUMIN 3.5 GM/DL (3.2-5.2); ALT/SGPT 30 U/L (12-78); BILIRUBIN,TOTAL 0.7 MG/DL (0.2-1.0); BLOOD UREA NITROGEN 14 MG/DL (7-18); CALCIUM LEVEL 8.7 MG/DL (8.8-10.2); CARBON DIOXIDE LEVEL 27 MEQ/L (21-32); CHLORIDE LEVEL 106 MEQ/L (98-107); CHOLESTEROL LEVEL 236 MG/DL (<200); CHOLESTEROL RISK RATIO 2.537 (<5); CREATININE FOR GFR 0.89 MG/DL (0.55-1.30); GLOMERULAR FILTRATION RATE > 60.0 (>45); GLUCOSE, FASTING 124 MG/DL (70-100); HDL CHOLESTEROL 93 MG/DL (>40); LDL CHOLESTEROL 123 MG/DL (<100); NON-HDL-C 143 MG/DL; POTASSIUM SERUM 3.7 MEQ/L (3.5-5.1); SODIUM LEVEL 140 MEQ/L (136-145); TOTAL PROTEIN 7.9 GM/DL (6.4-8.2); TRIGLYCERIDES LEVEL 102 MG/DL (<150)
[2019-10-28 12:27] LABS: HEMOGLOBIN A1c 6.7 %
== END ==
LOC: M LAB 10:36
PROVIDERS: ATTEND Internal Medicine
DX: I10 Essential (primary) hypertension (principal); E11.9 Type 2 diabetes mellitus without complications; E78.5 Hyperlipidemia, unspecified

== ENCOUNTER → 2019-11-25 | Outpatient (CLI) | payer MEDICARE, MEDICAID ==
[~2019-11-25] MED LIST changes: -AMLO10TA5 PO; +AMLO1TAB25 PO; -ASPI81TA85 PO; +ASPI81TA86 PO
[2019-11-25 16:26] LABS: BLOOD UREA NITROGEN 14 MG/DL (7-18); CALCIUM LEVEL 9.1 MG/DL (8.8-10.2); CARBON DIOXIDE LEVEL 28 MEQ/L (21-32); CHLORIDE LEVEL 107 MEQ/L (98-107); CREATININE FOR GFR 0.88 MG/DL (0.55-1.30); GLOMERULAR FILTRATION RATE > 60.0 (>45); GLUCOSE, FASTING 96 MG/DL (70-100); SODIUM LEVEL 138 MEQ/L (136-145)
== END ==
LOC: M LAB 14:32
PROVIDERS: ATTEND Physician Assistant
DX: I11.9 Hypertensive heart disease without heart failure (principal)

== ENCOUNTER → 2020-02-11 | Outpatient (CLI) | payer MEDICARE, MEDICAID ==
[2020-02-11 11:27] LABS: BASO % 0.4 % (0.0-1.0); EOS # 0.2 10^3/uL (0.0-0.5); EOS % 1.9 % (0.0-3.0); HEMATOCRIT 39.8 % (36.0-47.0); HEMOGLOBIN 13.2 g/dl (12.0-15.5); LYMPH # 2.5 10^3/uL (1.5-5.0); LYMPH % 26.4 % (24.0-44.0); MEAN CORPUSCULAR HEMOGLOBIN 29.1 pg (27.0-33.0); MEAN CORPUSCULAR HGB CONC 33.2 g/dl (32.0-36.5); MEAN CORPUSCULAR VOLUME 87.7 fl (80.0-96.0); MONO % 10.4 % (0.0-5.0); NEUTROPHILS # 5.7 10^3/uL (1.5-8.5); NEUTROPHILS % 60.5 % (36.0-66.0); PLATELET COUNT, AUTOMATED 233 10^3/uL (150-450); RED BLOOD COUNT 4.54 10^6/uL (4.00-5.40); WHITE BLOOD COUNT 9.4 10^3/uL (4.0-10.0)
[2020-02-11 11:56] LABS: ALBUMIN 3.4 GM/DL (3.2-5.2); ALT/SGPT 25 U/L (12-78); BILIRUBIN,TOTAL 0.7 MG/DL (0.2-1.0); BLOOD UREA NITROGEN 13 MG/DL (7-18); CALCIUM LEVEL 9.2 MG/DL (8.8-10.2); CARBON DIOXIDE LEVEL 28 MEQ/L (21-32); CHLORIDE LEVEL 105 MEQ/L (98-107); CHOLESTEROL LEVEL 239 MG/DL (<200); CHOLESTEROL RISK RATIO 2.747 (<5); CREATININE FOR GFR 0.81 MG/DL (0.55-1.30); GLOMERULAR FILTRATION RATE > 60.0 (>45); GLUCOSE, FASTING 107 MG/DL (70-100); HDL CHOLESTEROL 87 MG/DL (>40); LDL CHOLESTEROL 112 MG/DL (<100); NON-HDL-C 152 MG/DL; POTASSIUM SERUM 3.8 MEQ/L (3.5-5.1); SODIUM LEVEL 138 MEQ/L (136-145); TOTAL PROTEIN 7.6 GM/DL (6.4-8.2); TRIGLYCERIDES LEVEL 200 MG/DL (<150)
== END ==
LOC: M LAB 10:33
PROVIDERS: ATTEND Internal Medicine
DX: I10 Essential (primary) hypertension (principal)

== ENCOUNTER → 2020-02-19 | Outpatient (CLI) | payer MEDICARE, MEDICAID ==
--- NOTE | 2020-02-26 13:10 | REP ---
CT ABDOMEN AND PELVIS WITHOUT INTRAVENOUS (IV) OR ORAL CONTRAST HISTORY: Rule out adrenal mass. Other hyperaldosteronism. TECHNIQUE: This study was ordered with IV contrast, but the patient declined and thus was done without IV contrast. COMPARISON: CT abdomen from 05/11/2017. CT FINDINGS: Preliminary digital whale trainer radiograph shows an unremarkable bowel gas pattern. The lung bases are clear on axial CT images. There is no evidence of pleural effusion or upper abdominal ascites. There is minimal diffuse fatty infiltration of the liver. No abnormality noted in the spleen. There is a somewhat modeled density pattern in the lumen of the gallbladder consistent with cholelithiasis. There is pancolonic and rather advanced diffuse colonic diverticulosis. No CT evidence of diverticulitis is seen. The kidneys are morphologically intact. Bilaterally normal adrenal glands are observed. No periaortic mass or adenopathy is seen. The aorta is normal in caliber. A normal appendix is seen medial to the cecum in the central abdomen. No uterine or ovarian abnormality is appreciated. Urinary bladder is unremarkable. No abdominal wall defect is seen. Bone window settings show no bony destructive lesion. There are degenerative spondylosis changes in the lumbar spine. IMPRESSION: Adrenal glands are morphologically normal. Cholelithiasis is suspected. Minimal fatty infiltration of the liver. Pancolonic and advanced diverticulosis without CT evidence of diverticulitis. MTDD
== END ==
LOC: M RAD 13:31
PROVIDERS: ATTEND Internal Medicine
DX: E26.89 Other hyperaldosteronism (principal); K76.0 Fatty (change of) liver, not elsewhere classified; K57.90 Diverticulosis of intestine, part unspecified, without perforation or abscess without bleeding

== ENCOUNTER → 2020-09-08 | Outpatient (CLI) | payer MEDICARE, MEDICAID ==
[~2020-09-08] MED LIST changes: +HYDR-3490 PO; -HYDR25TAB PO; -LISI-538 PO; +LISI20TA33 PO
[2020-09-08 18:26] LABS: ALBUMIN 3.5 GM/DL (3.2-5.2); ALT/SGPT 26 U/L (12-78); BILIRUBIN,TOTAL 0.5 MG/DL (0.2-1.0); BLOOD UREA NITROGEN 14 MG/DL (7-18); CALCIUM LEVEL 9.1 MG/DL (8.8-10.2); CARBON DIOXIDE LEVEL 28 MEQ/L (21-32); CHLORIDE LEVEL 105 MEQ/L (98-107); CREATININE FOR GFR 0.73 MG/DL (0.55-1.30); GLOMERULAR FILTRATION RATE > 60.0 (>39); GLUCOSE, FASTING 86 MG/DL (70-100); POTASSIUM SERUM 3.9 MEQ/L (3.5-5.1); SODIUM LEVEL 140 MEQ/L (136-145); TOTAL PROTEIN 7.7 GM/DL (6.4-8.2)
[2020-09-08 21:47] LABS: HEMOGLOBIN A1c 6.1 %
== END ==
LOC: M LAB 16:04
PROVIDERS: ATTEND Internal Medicine
DX: E78.5 Hyperlipidemia, unspecified (principal); E11.9 Type 2 diabetes mellitus without complications

== ENCOUNTER → 2021-03-26 | Outpatient (CLI) | payer MEDICARE, MEDICAID ==
[~2021-03-26] MED LIST changes: -KLOR10TA76 PO; +POTA-136 PO
--- NOTE | 2021-03-26 12:33 | REP ---
INDICATION: SARCOIDOSIS. COMPARISON: 08/02/2017, 09/08/2016 CT TECHNIQUE: Noncontrast scanning through the chest with coronal and sagittal reconstructions. FINDINGS: The lung more remain well inflated and with some mild cylindrical bronchiectatic changes. They remain clear in the diffuse nodular and interstitial infiltrates on the previous CT in 2017 had cleared by 2018 and have remained so. No effusion, calcified pleural plaque, parenchymal mass or new suspicious nodules. Heart is mildly enlarged with left atrial and ventricular enlargement. No pericardial thickening or effusion. Precarinal, right paratracheal, AP window and some pre-vascular adenopathy again seen and unchanged. The hilar nodes are more difficult to assess in the absence of contrast but no significant change seen there. No pathologic sized axillary or supraclavicular nodes. Diffuse thoracic spondylosis with marginal osteophytes. No compression deformity or destructive lesions. Visualized ribs, clavicles, scapulae, humeral heads and the sternum/manubrium were grossly intact. Upper abdominal structures show that portion of liver grossly intact without hepatomegaly or focal mass. The gallbladder shows hyperdense bile or sludge. No calcified stone. Spleen not enlarged. Adrenal glands normal. Upper poles kidneys intact. Pancreas unremarkable. Diverticulosis of the visible colon without diverticulitis IMPRESSION: 1. Mediastinal and hilar adenopathy unchanged from the 08/02/2017 study. 2. No recurrence of the nodular interstitial infiltrates which had resolved between the [address]. Lungs essentially clear and stable. 3. Some cardiomegaly again noted. 4. Biliary sludge or dense bile noted without calcified stone. No other significant finding <Electronically signed by Abdirashid Finley > 03/26/21 [id number]
== END ==
LOC: M RAD 10:46
PROVIDERS: ATTEND Internal Medicine Pulmonary Disease
DX: D86.9 Sarcoidosis, unspecified (principal); J84.9 Interstitial pulmonary disease, unspecified; I51.7 Cardiomegaly; M25.78 Osteophyte, vertebrae; M47.814 Spondylosis without myelopathy or radiculopathy, thoracic region; K82.8 Other specified diseases of gallbladder

== ENCOUNTER → 2021-04-20 | Outpatient (CLI) | payer MEDICARE, MEDICAID ==
[~2021-04-20] MED LIST changes: +ASPI81CH8 PEG; +ATOR1TAB21 PO; +CARV25TA PO; +CODCAP25 PO; +D31000TA2 PO; +HYDR10TAB PO; +KCL PO; +LOSA100T45 PO; +MAGN250T22 PO; +MAGNESIUM PO; +[UNRECOGNIZED DRUG - OTHER] PO; +[UNRECOGNIZED DRUG - OTHER] PO
[2021-04-20 17:39] LABS: APPEARANCE, URINE CLEAR (CLEAR); BACTERIA, URINE AUTO NEGATIVE (NEGATIVE); BILIRUBIN, URINE AUTO NEGATIVE (NEGATIVE); BLOOD, URINE BLOOD NEGATIVE (NEGATIVE); COLOR, URINE YELLOW (YELLOW); GLUCOSE, URINE (UA) AUTO NEGATIVE (NEGATIVE); KETONE, URINE AUTO TRACE mg/dL (NEGATIVE); LEUKOCYTE ESTERASE, URINE AUTO 1+ (NEGATIVE); NITRITE, URINE AUTO NEGATIVE (NEGATIVE); PROTEIN, URINE AUTO 1+ mg/dL (NEGATIVE); RBC, URINE AUTO 2 /HPF (0-3); SPECIFIC GRAVITY URINE AUTO 1.023 (1.002-1.035); SQUAMOUS EPITHELIAL CELL UR AU 2 /HPF (0-6); UROBILINOGEN, URINE AUTO 0.2 mg/dL (0.0-2.0); WBC, URINE AUTO 9 /HPF (0-3)
[2021-04-20 17:41] LABS: BASO # 0.1 10^3/uL (0.0-0.2); BASO % 0.6 % (0.0-1.0); EOS # 0.2 10^3/uL (0.0-0.5); HEMATOCRIT 39.8 % (36.0-47.0); HEMOGLOBIN 12.9 g/dl (12.0-15.5); LYMPH # 1.9 10^3/uL (1.5-5.0); MEAN CORPUSCULAR HEMOGLOBIN 28.9 pg (27.0-33.0); MEAN CORPUSCULAR HGB CONC 32.4 g/dl (32.0-36.5); MONO % 11.4 % (2.0-8.0); NEUTROPHILS # 5.8 10^3/uL (1.5-8.5); NEUTROPHILS % 64.7 % (36.0-66.0); PLATELET COUNT, AUTOMATED 224 10^3/uL (150-450); RED BLOOD COUNT 4.47 10^6/uL (4.00-5.40)
[2021-04-23 23:07] LABS: METANEPHRINE PLASMA 15.3 pg/mL (0.0-88.0); NORMETANEPHRINE PLASMA 63.4 pg/mL (0.0-285.2)
== END ==
LOC: M LAB 16:05 → MERGE 16:05
PROVIDERS: ATTEND Internal Medicine Nephrology
DX: D86.9 Sarcoidosis, unspecified (principal); E87.6 Hypokalemia; N39.0 Urinary tract infection, site not specified; N18.30 Chronic kidney disease, stage 3 unspecified; I12.9 Hypertensive chronic kidney disease with stage 1 through stage 4 chronic kidney disease, or unspecified chronic kidney disease; E83.52 Hypercalcemia; E66.3 Overweight

== ENCOUNTER → 2021-05-06 | Outpatient (CLI) | payer MEDICARE, MEDICAID ==
[2021-05-06 16:55] LABS: BASO # 0.1 10^3/uL (0.0-0.2); BASO % 0.6 % (0.0-1.0); EOS # 0.2 10^3/uL (0.0-0.5); HEMATOCRIT 40.7 % (36.0-47.0); HEMOGLOBIN 13.1 g/dl (12.0-15.5); LYMPH # 1.8 10^3/uL (1.5-5.0); MEAN CORPUSCULAR HEMOGLOBIN 28.5 pg (27.0-33.0); MEAN CORPUSCULAR HGB CONC 32.2 g/dl (32.0-36.5); MEAN CORPUSCULAR VOLUME 88.7 fl (80.0-96.0); MONO # 0.7 10^3/uL (0.0-0.8); MONO % 8.9 % (2.0-8.0); NEUTROPHILS # 5.4 10^3/uL (1.5-8.5); NEUTROPHILS % 66.1 % (36.0-66.0); PLATELET COUNT, AUTOMATED 237 10^3/uL (150-450); RED BLOOD COUNT 4.59 10^6/uL (4.00-5.40); WHITE BLOOD COUNT 8.2 10^3/uL (4.0-10.0)
[2021-05-06 17:05] LABS: APPEARANCE, URINE CLEAR (CLEAR); BACTERIA, URINE AUTO NEGATIVE (NEGATIVE); BILIRUBIN, URINE AUTO NEGATIVE (NEGATIVE); BLOOD, URINE BLOOD NEGATIVE (NEGATIVE); COLOR, URINE COLORLESS (YELLOW); GLUCOSE, URINE (UA) AUTO NEGATIVE (NEGATIVE); KETONE, URINE AUTO NEGATIVE (NEGATIVE); LEUKOCYTE ESTERASE, URINE AUTO TRACE (NEGATIVE); NITRITE, URINE AUTO NEGATIVE (NEGATIVE); PROTEIN, URINE AUTO NEGATIVE (NEGATIVE); RBC, URINE AUTO 1 /HPF (0-3); SPECIFIC GRAVITY URINE AUTO 1.005 (1.002-1.035); SQUAMOUS EPITHELIAL CELL UR AU 1 /HPF (0-6); UROBILINOGEN, URINE AUTO 0.2 mg/dL (0.0-2.0); WBC, URINE AUTO 3 /HPF (0-3)
[2021-05-06 17:23] LABS: ALBUMIN 3.5 GM/DL (3.2-5.2); ALT/SGPT 25 U/L (12-78); BILIRUBIN,TOTAL 1.4 MG/DL (0.2-1.0); BLOOD UREA NITROGEN 10 MG/DL (7-18); CALCIUM LEVEL 9.5 MG/DL (8.8-10.2); CARBON DIOXIDE LEVEL 31 MEQ/L (21-32); CHLORIDE LEVEL 106 MEQ/L (98-107); CREATININE FOR GFR 0.71 MG/DL (0.55-1.30); GLOMERULAR FILTRATION RATE > 60.0 (>39); GLUCOSE, FASTING 106 MG/DL (70-100); POTASSIUM SERUM 3.6 MEQ/L (3.5-5.1); SODIUM LEVEL 142 MEQ/L (136-145); TOTAL PROTEIN 7.4 GM/DL (6.4-8.2); URIC ACID 5.2 MG/DL (2.6-6.0)
[2021-05-13 23:08] LABS: METANEPHRINE PLASMA 17.4 pg/mL (0.0-88.0); NORMETANEPHRINE PLASMA 113.1 pg/mL (0.0-285.2)
[2021-05-18 17:07] LABS: DOPAMINE 283 ug/24 hr (0-510); DOPAMINE TOTAL URINE 377 ug/L (Undefined); EPINEPHRINE 5 ug/24 hr (0-20); EPINEPHRINE TOTAL URINE 7 ug/L (Undefined); NOREPINEPHRINE 62 ug/24 hr (0-135); NOREPINEPHRINE TOTAL URINE 82 ug/L (Undefined)
== END ==
LOC: M LAB 15:02
PROVIDERS: ATTEND Internal Medicine Nephrology
DX: D86.9 Sarcoidosis, unspecified (principal); N18.30 Chronic kidney disease, stage 3 unspecified; I12.9 Hypertensive chronic kidney disease with stage 1 through stage 4 chronic kidney disease, or unspecified chronic kidney disease; E83.52 Hypercalcemia; E66.3 Overweight; E87.6 Hypokalemia; N39.0 Urinary tract infection, site not specified

== ENCOUNTER → 2021-05-07 | Outpatient (CLI) | payer MEDICAID, MEDICARE ==
[~2021-05-07] MED LIST changes: +PROHANCE 279.3MG/ML 15ML VIAL As Ordered ONE
== END ==
LOC: M RAD 16:32
PROVIDERS: ATTEND Internal Medicine Nephrology
DX: I70.1 Atherosclerosis of renal artery (principal); K80.20 Calculus of gallbladder without cholecystitis without obstruction
CPT/HCPCS: A9576; C8902

== ENCOUNTER → 2021-10-07 | Outpatient (CLI) | payer MEDICARE ==
[~2021-10-07] MED LIST changes: -D31000TA2 PO; -PROHANCE 279.3MG/ML 15ML VIAL As Ordered ONE; +VITA100093 PO
[2021-10-07 12:32] LABS: BASO # 0.1 10^3/uL (0.0-0.2); BASO % 0.6 % (0.0-1.0); EOS # 0.2 10^3/uL (0.0-0.5); EOS % 2.3 % (0.0-3.0); HEMATOCRIT 42.8 % (36.0-47.0); HEMOGLOBIN 14.2 g/dl (12.0-15.5); LYMPH # 1.8 10^3/uL (1.5-5.0); LYMPH % 21.7 % (24.0-44.0); MEAN CORPUSCULAR HEMOGLOBIN 29.2 pg (27.0-33.0); MEAN CORPUSCULAR HGB CONC 33.2 g/dl (32.0-36.5); MEAN CORPUSCULAR VOLUME 87.9 fl (80.0-96.0); MONO # 0.7 10^3/uL (0.0-0.8); MONO % 8.6 % (2.0-8.0); NEUTROPHILS # 5.5 10^3/uL (1.5-8.5); NEUTROPHILS % 66.4 % (36.0-66.0); PLATELET COUNT, AUTOMATED 238 10^3/uL (150-450); RED BLOOD COUNT 4.87 10^6/uL (4.00-5.40); WHITE BLOOD COUNT 8.3 10^3/uL (4.0-10.0)
[2021-10-07 13:05] LABS: ALBUMIN 3.5 GM/DL (3.2-5.2); ALT/SGPT 21 U/L (12-78); BILIRUBIN,TOTAL 0.8 MG/DL (0.2-1.0); BLOOD UREA NITROGEN 12 MG/DL (7-18); CALCIUM LEVEL 9.6 MG/DL (8.8-10.2); CARBON DIOXIDE LEVEL 28 MEQ/L (21-32); CHLORIDE LEVEL 107 MEQ/L (98-107); CHOLESTEROL LEVEL 235 MG/DL (<200); CHOLESTEROL RISK RATIO 2.554 (<5); CREATININE FOR GFR 0.72 MG/DL (0.55-1.30); GLOMERULAR FILTRATION RATE > 60.0 (>39); GLUCOSE, FASTING 110 MG/DL (70-100); HDL CHOLESTEROL 92 MG/DL (>40); LDL CHOLESTEROL 124 MG/DL (<100); NON-HDL-C 143 MG/DL; POTASSIUM SERUM 3.7 MEQ/L (3.5-5.1); SODIUM LEVEL 142 MEQ/L (136-145); TOTAL PROTEIN 7.5 GM/DL (6.4-8.2); TRIGLYCERIDES LEVEL 95 MG/DL (<150)
[2021-10-07 13:35] LABS: HEMOGLOBIN A1c 6.1 %
== END ==
LOC: M LAB 11:57
PROVIDERS: ATTEND Internal Medicine
DX: R73.01 Impaired fasting glucose (principal); I10 Essential (primary) hypertension; E78.5 Hyperlipidemia, unspecified

== ENCOUNTER → 2022-03-10 | Outpatient (CLI) | payer MEDICARE, MEDICAID ==
[2022-03-10 15:43] LABS: HEMOGLOBIN A1c 6.1 %
[2022-03-10 17:08] LABS: TOTAL 25(OH) VITAMIN D 27.3 NG/ML (30.0-100.0)
[2022-03-18 08:09] LABS: VITAMIN B1 LEVEL WHOLE BLOOD 139.4 nmol/L (66.5-200.0); VITAMIN B6,PYRIDOXAL PHOSPHATE 6.2 ug/L (3.4-65.2); VITAMIN E(GAMMA TOCOPHEROL) 2.2 mg/L (0.5-4.9)
== END ==
LOC: M LAB 11:44
PROVIDERS: ATTEND Psychiatry & Neurology Neurology
DX: E11.9 Type 2 diabetes mellitus without complications (principal); E78.5 Hyperlipidemia, unspecified; E53.8 Deficiency of other specified B group vitamins; E55.9 Vitamin D deficiency, unspecified; E51.9 Thiamine deficiency, unspecified

== ENCOUNTER → 2022-06-16 | Outpatient (CLI) | payer MEDICARE, MEDICAID ==
[2022-06-16 15:29] LABS: ALBUMIN 3.7 G/DL (3.2-5.2); ALKALINE PHOSPHATASE 70 U/L (46-116); ALT/SGPT 18 U/L (7.0-40); AST/SGOT 18 U/L (<34); BILIRUBIN,TOTAL 0.9 MG/DL (0.3-1.2); BLOOD UREA NITROGEN 15 MG/DL (9-23); CALCIUM LEVEL 9.3 MG/DL (8.3-10.6); CARBON DIOXIDE LEVEL 27 MMOL/L (20-31); CHLORIDE LEVEL 106 MMOL/L (98-107); CHOLESTEROL LEVEL 175 MG/DL (<200); CHOLESTEROL RISK RATIO 2.12 (<5); CREATININE FOR GFR 0.73 MG/DL (0.55-1.30); GLOMERULAR FILTRATION RATE > 60.0 (>39); GLUCOSE, FASTING 97 MG/DL (74-106); HDL CHOLESTEROL 82.5 MG/DL (>40); LDL CHOLESTEROL 72.5 MG/DL (<100); NON-HDL-C 93 MG/DL; POTASSIUM SERUM 4.1 MMOL/L (3.5-5.1); SODIUM LEVEL 140 MMOL/L (136-145); TOTAL PROTEIN 7.7 G/DL (5.7-8.2); TRIGLYCERIDES LEVEL 100 MG/DL (<150)
== END ==
LOC: M RAD 13:31
PROVIDERS: ATTEND Internal Medicine
DX: I67.9 Cerebrovascular disease, unspecified (principal); E78.5 Hyperlipidemia, unspecified; I10 Essential (primary) hypertension

== ENCOUNTER → 2022-06-16 | Outpatient (CLI) | payer MEDICARE, MEDICAID ==
[2022-06-16 15:18] LABS: HEMOGLOBIN A1c 5.9 % (4.0-6.0)
[2022-06-16 15:30] LABS: CHOLESTEROL RISK RATIO 2.12 (<5); HDL CHOLESTEROL 83.9 MG/DL (>40); LDL CHOLESTEROL 73.5 MG/DL (<100)
[2022-06-16 15:32] LABS: FOLATE 23.4 NG/ML (>5.4); TOTAL 25(OH) VITAMIN D 21.9 NG/ML (20.0-100.0)
[2022-06-23 20:07] LABS: VITAMIN B1 LEVEL WHOLE BLOOD 119.2 nmol/L (66.5-200.0); VITAMIN B6,PYRIDOXAL PHOSPHATE 9.5 ug/L (3.4-65.2); VITAMIN E(ALPHA TOCOPHEROL) 11.3 mg/L (9.0-29.0); VITAMIN E(GAMMA TOCOPHEROL) 1.6 mg/L (0.5-4.9)
== END ==
LOC: M LAB 13:36
PROVIDERS: ATTEND Psychiatry & Neurology Neurology
DX: I63.9 Cerebral infarction, unspecified (principal); E11.8 Type 2 diabetes mellitus with unspecified complications; D51.9 Vitamin B12 deficiency anemia, unspecified; E51.9 Thiamine deficiency, unspecified; E55.9 Vitamin D deficiency, unspecified; E78.5 Hyperlipidemia, unspecified

== ENCOUNTER → 2024-01-03 | Outpatient (CLI) | payer MEDICARE, MEDICAID ==
[~2024-01-03] MED LIST changes: -COZA50TA PO; +HYDR-161 PO; -HYDR10TAB PO; +LOSA-528 PO; -LOSA100T45 PO; +LOSA100T46 PO
[2024-01-03 13:11] LABS: ALBUMIN 3.4 G/DL (3.2-5.2); BLOOD UREA NITROGEN 14 MG/DL (9-23); CALCIUM LEVEL 8.9 MG/DL (8.3-10.6); CARBON DIOXIDE LEVEL 27 MMOL/L (20-31); CHLORIDE LEVEL 108 MMOL/L (98-107); CREATININE FOR GFR 0.75 MG/DL (0.55-1.30); GLOMERULAR FILTRATION RATE > 60.0 (>39); GLUCOSE, FASTING 105 MG/DL (74-106); PHOSPHORUS LEVEL 4.5 MG/DL (2.4-5.1); POTASSIUM SERUM 3.7 MMOL/L (3.5-5.1); SODIUM LEVEL 142 MMOL/L (136-145)
[2024-01-03 13:15] LABS: THYROID STIMULATING HORMONE 2.491 uIU/ML (0.55-4.78)
== END ==
LOC: M LAB 12:09
PROVIDERS: ATTEND Internal Medicine Cardiovascular Disease
DX: I10 Essential (primary) hypertension (principal); R60.0 Localized edema; G47.33 Obstructive sleep apnea (adult) (pediatric)

== ENCOUNTER → 2024-01-03 | Outpatient (CLI) | payer MEDICARE, MEDICAID ==
[2024-01-03 12:41] LABS: HEMATOCRIT 41.5 % (36.0-47.0); HEMOGLOBIN 13.7 g/dl (12.0-15.5); MEAN CORPUSCULAR VOLUME 87.9 fl (80.0-96.0); PLATELET COUNT, AUTOMATED 242 10^3/uL (150-450); RED BLOOD COUNT 4.72 10^6/uL (4.00-5.40); WHITE BLOOD COUNT 8.4 10^3/uL (4.0-10.0)
[2024-01-03 12:59] LABS: HEMOGLOBIN A1c 5.8 % (4.0-6.0)
[2024-01-03 13:16] LABS: ALBUMIN 3.5 G/DL (3.2-5.2); ALKALINE PHOSPHATASE 71 U/L (46-116); ALT/SGPT 13 U/L (7.0-40); AST/SGOT 10 U/L (<34); BILIRUBIN,TOTAL 0.7 MG/DL (0.3-1.2); BLOOD UREA NITROGEN 15 MG/DL (9-23); CALCIUM LEVEL 8.8 MG/DL (8.3-10.6); CARBON DIOXIDE LEVEL 28 MMOL/L (20-31); CHLORIDE LEVEL 107 MMOL/L (98-107); CHOLESTEROL LEVEL 207 MG/DL (<200); CHOLESTEROL RISK RATIO 2.58 (<5); CREATININE FOR GFR 0.74 MG/DL (0.55-1.30); GLOMERULAR FILTRATION RATE > 60.0 (>39); GLUCOSE, FASTING 104 MG/DL (74-106); HDL CHOLESTEROL 80.1 MG/DL (>40); LDL CHOLESTEROL 110.1 MG/DL (<100); NON-HDL-C 126.9 MG/DL; POTASSIUM SERUM 3.6 MMOL/L (3.5-5.1); SODIUM LEVEL 139 MMOL/L (136-145); TOTAL PROTEIN 7.4 G/DL (5.7-8.2); TRIGLYCERIDES LEVEL 84 MG/DL (<150)
== END ==
LOC: M LAB 12:14
PROVIDERS: ATTEND Internal Medicine
DX: I67.9 Cerebrovascular disease, unspecified (principal); E78.5 Hyperlipidemia, unspecified; R73.01 Impaired fasting glucose; I10 Essential (primary) hypertension; R60.0 Localized edema; G47.33 Obstructive sleep apnea (adult) (pediatric)

== ENCOUNTER → 2024-01-10 | Outpatient (CLI) | payer MEDICARE, MEDICAID | LOC: M WHC 14:44 | PROVIDERS: ATTEND Internal Medicine | DX: Z12.31 Encounter for screening mammogram for malignant neoplasm of breast (principal); R92.313 Mammographic fatty tissue density, bilateral breasts ==

== ENCOUNTER → 2024-09-20 | Outpatient (CLI) | payer MEDICARE, MEDICAID ==
[~2024-09-20] MED LIST changes: +AMLO-751 PO; -AMLO10TA PO
[2024-09-20 17:29] LABS: HEMATOCRIT 43.2 % (36.0-47.0); HEMOGLOBIN 14.2 g/dl (12.0-15.5); MEAN CORPUSCULAR HEMOGLOBIN 28.9 pg (27.0-33.0); MEAN CORPUSCULAR HGB CONC 32.9 g/dl (32.0-36.5); MEAN CORPUSCULAR VOLUME 87.8 fl (80.0-96.0); PLATELET COUNT, AUTOMATED 243 10^3/uL (150-450); RED BLOOD COUNT 4.92 10^6/uL (4.00-5.40); WHITE BLOOD COUNT 8.8 10^3/uL (4.0-10.0)
[2024-09-20 17:48] LABS: HEMOGLOBIN A1c 5.8 % (4.0-6.0)
[2024-09-20 18:06] LABS: ALBUMIN 3.5 G/DL (3.2-5.2); ALKALINE PHOSPHATASE 76 U/L (35-104); ALT/SGPT 16 U/L (7.0-40); AST/SGOT 14 U/L (<34); BLOOD UREA NITROGEN 12 MG/DL (9-23); CALCIUM LEVEL 9.2 MG/DL (8.3-10.6); CARBON DIOXIDE LEVEL 28 MMOL/L (20-31); CHLORIDE LEVEL 106 MMOL/L (98-107); CHOLESTEROL LEVEL 240 MG/DL (<200); CHOLESTEROL RISK RATIO 2.88 (<5); CREATININE FOR GFR 0.64 MG/DL (0.55-1.30); GLOMERULAR FILTRATION RATE > 90.0 (>39); GLUCOSE, FASTING 95 MG/DL (74-106); HDL CHOLESTEROL 83.1 MG/DL (>40); LDL CHOLESTEROL 138.1 MG/DL (<100); NON-HDL-C 156.9 MG/DL; SODIUM LEVEL 141 MMOL/L (136-145); THYROID STIMULATING HORMONE 2.636 uIU/ML (0.55-4.78); TOTAL PROTEIN 7.6 G/DL (5.7-8.2); TRIGLYCERIDES LEVEL 94 MG/DL (<150)
[2024-09-20 18:07] LABS: FREE T4 1.13 NG/DL (0.89-1.76)
== END ==
LOC: M LAB 16:25
PROVIDERS: ATTEND Physician Assistant
DX: E78.5 Hyperlipidemia, unspecified (principal); I11.9 Hypertensive heart disease without heart failure; R00.2 Palpitations; R73.01 Impaired fasting glucose

== ENCOUNTER → 2024-09-20 | Outpatient (CLI) | payer MEDICARE, MEDICAID | LOC: M CARPUL 14:34 | PROVIDERS: ATTEND Physician Assistant | DX: I35.1 Nonrheumatic aortic (valve) insufficiency (principal); E78.5 Hyperlipidemia, unspecified; I11.9 Hypertensive heart disease without heart failure; R00.2 Palpitations; R73.01 Impaired fasting glucose ==